=== PATIENT | female | born 1955 | race African-American/Black ===

== ENCOUNTER 2018-01-12 08:10 | Inpatient (IN) | payer MEDICARE, BC ==
[2018-01-12] MEDS ORDERED: Lidocaine 1% PF 5 ML VIAL ONE (08:21)
[2018-01-12] MEDS ORDERED: Fentanyl 100 MCG/2 ML VIAL ONE (08:31)
[2018-01-12] MEDS ORDERED: Fentanyl 20 mcg/ml (100 ml CADD) IV PRN (08:41)
[2018-01-12] MEDS ORDERED: methylPREDNISolone Sod Succ/PF 125 MG/2 ML VIAL ONE (08:43)
[2018-01-12] MEDS ORDERED: Sodium Bicarbonate 2.5 MEQ/5 ML VIAL ONE (08:43)
[2018-01-12] MEDS ORDERED: Piperacillin/Tazobactam 4.5 GM VIAL ONE (08:43)
[2018-01-12] MEDS ORDERED: Calcium Chloride 1 GM/10 ML Abboject SYRINGE ONE (08:43)
[2018-01-12] MEDS ORDERED: Sodium Bicarb 50 MEQ/50 ML Abboject 8.4% SYRINGE ONE (08:45)
[2018-01-12] MEDS ORDERED: Norepinephrine 8 MG/0.9% NS 250 ML IVPB SCH (09:00)
[2018-01-12 09:01] LABS: #Eosinphils 0.7 thou/uL (0.0-0.7); #Lymphocytes 2.7 thou/uL (1.20-3.40); #Monocytes 1.3 thou/uL (0.11-0.59); #Neutrophils 6.9 thou/uL (1.40-6.50); %Basophils 0.4 % (0.0-1.0); %Eosinophils 6.3 % (0.0-10.0); %Lymphocytes 22.8 % (21.0-51.0); %Monocytes 11.2 % (0.0-10.0); %Neutrophils 59.2 % (42.0-75.0); Hemoglobin 8.2 g/dL (12.0-16.0); Mean Corpuscular HGB CONC 30.1 g/dL (32.0-36.0); Mean Corpuscular Hemoglobin 29.5 pg (27.0-31.0); Mean Platelet Volume 9.8 fL (7.4-10.4); Platelet Count 154 thou/uL (130-400); Red Blood Cell (RBC) Count 2.79 mill/uL (4.20-5.40); White Blood Cell (WBC) Count 11.6 thou/uL (4.8-10.8)
[2018-01-12 09:11] LABS: pH, Arterial 7.39 (7.35-7.45)
[2018-01-12 09:12] LABS: Actual Bicarbonate (HCO3a) 36.4 mEq/L (22-28); Base Excess (BEa) 10.3 mEq/L (-2.0 to +3.0); CO2 Tension 61.9 mmHg (35.0-45.0); Hematocrit-ABG 22.9 % (36.0-47.0); Hemoglobin (Hb) 6.7 g/dL (12.0-16.0); O2 Tension (PaO2) 154.1 mmHg (> 80.0)
[2018-01-12 09:13] LABS: ALV-art Gradient 196.325 (0-20); Analyzer IN Cardio ER; Calcium, Ionized 1.5 mmol/L (1.12-1.30); Puncture Site RRA
[2018-01-12 09:27] LABS: Band 8 % (5-11); Eosinophils 3 % (0-10); Lymphocytes 30 % (21-51); MDiff Complete? YES; Monocytes 9 % (0-10); Myelocyte 1 % (0-0); Neutrophil 49 % (42-75); PLT Morphology Comment Appears Adequate; Polychromasia SLIGHT = 2-3 cells (100X) (0-2/hpf)
[2018-01-12 09:28] LABS: CKMB 2.1 ng/mL (0-6.6); Troponin I 0.028 ng/mL (< 0.028)
[2018-01-12 09:33] LABS: INR-International Normal Ratio 1.1
[2018-01-12 09:34] LABS: PTT 31.2 SEC (22.9-36.1)
[2018-01-12 09:35] LABS: D-Dimer Test 1.56 *mcg/mL (0.27-0.43)
[2018-01-12 09:48] LABS: ALT (SGPT) 10 U/L (8-55); AST (SGOT) 30 U/L (5-34); Albumin 3.4 g/dL (3.4-4.8); Alkaline Phosphatase 75 U/L (40-150); Anion Gap 13 mmol/L (10-20); BUN (Urea Nitrogen) 26 mg/dL (9.8-20.1); Bilirubin, Total 0.3 mg/dL (0.2-1.2); Calc. Creatinine Clearance 0 mL/min (70-130); Carbon Dioxide 29 mmol/L (23-31); Chloride 104 mmol/L (98-107); Estimated GFR-MDRD 55; Globulin 4.2 g/dL (2.4-3.5); Glucose 148 mg/dL (80-115); Lipase 37 U/L (8-78); Magnesium 2.1 mg/dL (1.6-2.6); Potassium 4.6 mmol/L (3.5-5.1); Protein, Total 7.6 g/dL (6.0-8.3); Sodium 141 mmol/L (136-145)
--- NOTE | 2018-01-12 09:52 | RAD ---
UPRIGHT PORTABLE CHEST ONE VIEW: History: 62-year-old female with history of respiratory distress. FINDINGS: Post op underlying sternotomy. Dual-lumen venous access catheter on the left side. Cardiomegaly with bilateral vascular congestion and bilateral pleural effusions and bibasilar pulmonary parenchymal lg nges. IMPRESSION: Left dual-lumen venous access catheter. Post underlying sternotomy. Cardiomegaly with bilateral vascu lar congestion, bilateral pleural effusions, and bibasilar pulmonary parenchymal changes with poor in spiratory effort. Consider short term follow up upright PA and lateral chest whenever the patient can undergo that study. POS: [facility]
--- NOTE | 2018-01-12 10:23 | CT ---
CT OF BRAIN PERFORMED WITHOUT CONTRAST ENHANCEMENT: History: Altered mental status. FINDINGS: The ventricular and cisternal system is within normal limits. There is no sign of intracerebral hemor rhage or extraaxial fluid collections. Mastoid air cells and visualized sinuses are clear. IMPRESSION: No acute intracranial abnormalities. POS: [facility]
--- NOTE | 2018-01-12 10:27 | RAD ---
FRONTAL RADIOGRAPH OF THE CHEST PORTABLE SUPINE: Date: 01-12-18 Time: 8:21 a.m. Comparison: 01-12-18 at 7:31 a.m. History: Intubated patient. FINDINGS: An endotracheal tube has been placed, overlying the tracheal air column, terminating at the level of the clavicular heads. Left sided diaphysis catheter present in stable position. Sternotomy wires note d inferiorly with mediastinal clips, stable. Hazy bibasilar pleural and parenchymal opacity, left gre ater than right, nonspecific and stable. Supine imaging limits assessment for pneumothorax and pleural fluid. IMPRESSION: Interval intubation - otherwise unchanged. POS: [facility]
--- NOTE | 2018-01-12 10:29 | CT ---
CT ARTERIOGRAM CHEST WITH IV CONTRAST AND 3D MIP IMAGING: History: Dyspnea. Bilateral lung transplants. FINDINGS: There is good contrast opacification of the pulmonary arteries. Bovine origin of the great vessels fr om the aortic arch. Post-operative changes consistent with bilateral lung transplants. Moderate degree of bibasilar atelectasis with small amount of bilateral pleural fluid. No evidence of pneumothorax. Endotracheal catheter and left internal jugular dialysis type catheter are noted. IMPRESSION: 1. No CT evidence of pulmonary embolus. 2. Post-operative changes. Moderate bilateral basilar atelectasis. Cause is not apparent. POS: [facility]
[2018-01-12 10:33] LABS: Bilirubin Negative (Negative); Blood, Urine Negative (Negative); Clarity CLEAR (Clear); Glucose, Urine (Dipstick) Negative (Negative); Leukocyte Negative (Negative); Nitrite Negative (Negative); Protein, Urine (Dipstick) Negative (Neg-Trace); Urobilinogen 0.2 mg/dL (0.2-1.0)
[2018-01-12] MEDS ORDERED: Furosemide 20 MG/2 ML VIAL ONE (10:54)
[2018-01-12] MEDS ORDERED: Furosemide 40 MG/4 ML VIAL ONE (10:54)
[2018-01-12] MEDS ORDERED: ISOVUE-370 76%-LOCM 1 ML ONE (11:54)
[2018-01-12 12:56] LABS: Actual Bicarbonate (HCO3a) 34.2 mEq/L (22-28); CO2 Tension 54.4 mmHg (35.0-45.0); O2 Tension (PaO2) 100.7 mmHg (> 80.0); pH, Arterial 7.42 (7.35-7.45)
[2018-01-12 12:57] LABS: Base Excess (BEa) 8.6 mEq/L (-2.0 to +3.0); Hemoglobin (Hb) 7.7 g/dL (12.0-16.0)
[2018-01-12 12:58] LABS: Calcium, Ionized 1.2 mmol/L (1.12-1.30); Puncture Site RBA
[2018-01-12 13:00] LABS: Troponin I 0.033 ng/mL (< 0.028)
[2018-01-12] MEDS: Sodium Chloride 0.45% 1,000 ML IV SCH (13:30)
[2018-01-12 13:57] VITALS: BMI 33.3
[2018-01-12 16:55] LABS: Troponin I 0.042 ng/mL (< 0.028)
[2018-01-12] MEDS: Mometasone/Formoterol 120 PUFF INHALER INH SCH (19:06)
[2018-01-12] MEDS ORDERED: Famotidine/PF 20 mg/2ml Vial SLOW IVP SCH (21:00)
[2018-01-12] MEDS ORDERED: Vancomycin HCl 1 GM in Premix Bag 1 BAG IVPB SCH (21:00)
[2018-01-12] MEDS ORDERED: Cefepime 2 GM in Sodium Chloride 0.9% 100 ML IVPB SCH (21:00)
[2018-01-13] MEDS: Sodium Chloride 0.45% 1,000 ML IV SCH (00:25)
[2018-01-13 04:43] VITALS: TEMP 98.7
[2018-01-13 07:13] VITALS: BP 121/92
[2018-01-13 07:39] LABS: Anion Gap 12 mmol/L (10-20); BUN (Urea Nitrogen) 34 mg/dL (9.8-20.1); Calc. Creatinine Clearance 56 mL/min (70-130); Carbon Dioxide 32 mmol/L (23-31); Chloride 102 mmol/L (98-107); Estimated GFR-MDRD 45; Glucose 97 mg/dL (80-115); Potassium 4.3 mmol/L (3.5-5.1); Sodium 142 mmol/L (136-145)
[2018-01-13 07:56] LABS: Anisocytosis SLIGHT = 6-15 cells (100X) (0-5/hpf); Band 5 % (5-11); Hemoglobin 6.5 g/dL (12.0-16.0); Lymphocytes 3 % (21-51); MDiff Complete? YES; Mean Corpuscular HGB CONC 32.7 g/dL (32.0-36.0); Mean Corpuscular Hemoglobin 29.9 pg (27.0-31.0); Mean Corpuscular Volume 91.5 fL (78.0-98.0); Mean Platelet Volume 10.1 fL (7.4-10.4); Monocytes 2 % (0-10); Neutrophil 90 % (42-75); PLT Morphology Comment Appears Decreased; Platelet Count 99 thou/uL (130-400); RBC Distribution Width 15.9 % (11.5-14.5); Red Blood Cell (RBC) Count 2.18 mill/uL (4.20-5.40)
[2018-01-13] MEDS: Mometasone/Formoterol 120 PUFF INHALER INH SCH (07:58)
[2018-01-13] MEDS ORDERED: Montelukast Sodium 10 mg Tablet PO SCH (09:00)
--- NOTE | 2018-01-13 10:06 | CON ---
DATE OF CONSULTATION: 01/12/2018 HISTORY OF PRESENT ILLNESS: Ms. Wills is a 62-year-old female. She recently completed extremely long hospitalization for transplant rejection. She is a double-lung transplant recipient. I am told she had pulmonary fibrosis. She presented with respiratory distress, was intubated. The patient did not want to go to [place]. In my interaction with the patient, she is not ready for palliative care nor is his family. I am meeting with the family. They do not want her to [place] because she does not want to go. They did not localize any problems with the care provided at a transplant center. She was admitted by the emergency physician to the Hospitalist without a discussion with us. She has seen my associate, Dr. Tafoya, in the past, but has not seen him since 2013. She is in her second year after her transplant. According to his note in 2013, she had end-stage bronchiectasis with no clear etiology. Her family says she has had chronic transplant rejection and her transplant doctors in [place] had told her that it is I can do for her. She is unwilling to proceed with comfort care and her family wants to honor her wishes. PAST MEDICAL HISTORY: Remarkable for sleep apnea, asthma, hypertension, bronchiectasis, knee surgery, , and hysterectomy in the past. SOCIAL HISTORY: She never was a smoker or drinker. ALLERGIES: She has no known drug allergies. FAMILY HISTORY: Negative for lung disease in early age. PHYSICAL EXAMINATION: GENERAL: She is afebrile, heart rates in the 90s, respiratory rate in the 20s, oximetry is 99, blood pressures 138/97. GENERAL: She appeared comfortable mechanical ventilation. She was able to interact. NECK: Supple, without lymphadenopathy. LUNGS: Distant and clear. HEART: Regular rhythm, rapid rate. ABDOMEN: Soft and nontender. EXTREMITIES: Without clubbing, cyanosis, or edema. she is in sinus rhythm. LABORATORY AND DIAGNOSTIC DATA: White count 11.6, hemoglobin 8.2, platelets 154 ,000. Sodium 141, potassium 4.6, chloride 104, bicarb 29, BUN 23, creatinine 1.19. CT pulmonary angiogram was done. She has diffused ground glass infiltrates bilaterally that are patchy and there was no evidence of thromboembolic disease. IMPRESSION: Respiratory failure associated with chronic transplant rejection, it is unclear whether or not she has an acute infectious process. I recommended transfer to her transplant center yesterday. In my experience, I have always wanted to manage her perioperative posttransplant issues. I think this is especially appropriate with a double-lung transplant. She is stable for transfer. I would recommend transfer via helicopter. Critical care time is 35 minutes MTDD
== END 2018-01-13 10:18 | disposition short-term general hospital (02) | DRG 208 ==
LOC: ERS 08:10 → CCU 11:55
PROVIDERS: ADMIT Family Medicine; ATTEND Family Medicine
PROC: 5A1935Z Respiratory Ventilation, Less than 24 Consecutive Hours (ICD-10-PCS; principal; 2018-01-12)
PROC: 0BH17EZ Insertion of Endotracheal Airway into Trachea, Via Natural or Artificial Opening (ICD-10-PCS; 2018-01-12)
DX: T86.810 Lung transplant rejection (principal); J96.92 Respiratory failure, unspecified with hypercapnia; G47.30 Sleep apnea, unspecified; J45.909 Unspecified asthma, uncomplicated; I10 Essential (primary) hypertension; Z87.09 Personal history of other diseases of the respiratory system
CPT/HCPCS: 31500; 36415; 36416; 36556; 51702; 70450; 71045; 71275; 80048; 80053; 80197; 81003; 82533; 82553; 82805; 83605; 83690; 83735; 83880; 84443; 84484; 85025; 85379; 85384; 85610; 85730; 86850; 86900; 86901; 87040; 87086; 87149; 93005; 94002; 94003; 94660; 96365; 96366; 96367; 96368; 96374; 96375; A4216; J0692; J1940; J1956; J2001; J2543; J2920; J2930; J3010; J3370; J7050

== ENCOUNTER 2018-02-10 13:42 | Inpatient (IN) | payer MEDICARE, BC ==
[2018-02-10 14:06] LABS: #Basophils 0.2 thou/uL (0.0-0.2); #Eosinphils 0.3 thou/uL (0.0-0.7); #Monocytes 0.8 thou/uL (0.11-0.59); %Basophils 1.5 % (0.0-1.0); %Eosinophils 2.7 % (0.0-10.0); %Lymphocytes 48.9 % (21.0-51.0); %Monocytes 7.6 % (0.0-10.0); %Neutrophils 39.3 % (42.0-75.0); Hemoglobin 9.2 g/dL (12.0-16.0); Mean Corpuscular HGB CONC 30.9 g/dL (32.0-36.0); Mean Corpuscular Hemoglobin 28.9 pg (27.0-31.0); Mean Corpuscular Volume 93.4 fL (78.0-98.0); Mean Platelet Volume 6.8 fL (7.4-10.4); Platelet Count 119 thou/uL (130-400); RBC Distribution Width 18.9 % (11.5-14.5); Red Blood Cell (RBC) Count 3.19 mill/uL (4.20-5.40); White Blood Cell (WBC) Count 10.3 thou/uL (4.8-10.8)
[2018-02-10 14:12] LABS: INR-International Normal Ratio 1.6; PTT 43.2 SEC (22.9-36.1); Prothrombin Time 19.1 SEC (12.0-14.7)
[2018-02-10 14:31] LABS: pH, Arterial 7.14 (7.35-7.45)
[2018-02-10 14:32] LABS: Actual Bicarbonate (HCO3a) 16.4 mEq/L (22-28); Base Excess (BEa) -12.1 mEq/L (-2.0 to +3.0); Carboxyhemoglobin (COHb) 0.1 gm% (0.0-3.0); Hemoglobin (Hb) 9.5 g/dL (12.0-16.0); O2 Tension (PaO2) 482.9 mmHg (> 80.0); Potassium - ABG Lab 4.5 mmol/L (3.70-5.30)
[2018-02-10 14:33] LABS: Analyzer IN Cardio ER; Calcium, Ionized 1.2 mmol/L (1.12-1.30); Puncture Site LF
[2018-02-10 14:33] LABS: CKMB 1.7 ng/mL (0-6.6); Troponin I 0.021 ng/mL (< 0.028)
--- NOTE | 2018-02-10 14:57 | RAD ---
PORTABLE AP CHEST: Date: 02/10/18 HISTORY: Follow-up evaluation. Tracheostomy device in place. [facility]. COMPARISON: 01/12/18. FINDINGS: The endotracheal tube has been removed, and there has been interval placement of the tracheostomy dev ice. A left internal jugular vein hemodialysis catheter remains in place and unchanged in position. P ostsurgical changes of the chest are noted with multiple surgical clips seen overlying the cardiac si lhouette, lower chest, as well as surgical clips overlying the right upper quadrant. Cerclage wires a lso overlie the lower midline of the chest. Pacing device overlies the right chest. There is evidence of bibasilar atelectasis. There is suggesting of blunting of the right lateral cost ophrenic angle on the prior exam, which is not appreciated on today's exam. Parenchymal changes of ea ch lung base have improved. Cardiac silhouette is magnified by projection, but is at the upper limits of normal to borderline enlarged. Pulmonary vasculature is within normal limits. There are calcific densities overlying the upper quadrants bilaterally, which may be related to residual contrast within the colon. IMPRESSION: 1. Tracheostomy device now noted in place. 2. Improvement in bibasilar pleural and parenchymal changes, with only mild linear and patchy densit ies now seen, probably related to atelectasis. POS: [facility]
[2018-02-10 14:58] LABS: Bilirubin Negative (Negative); Blood, Urine Large (Negative); Glucose, Urine (Dipstick) Negative (Negative); Leukocyte Negative (Negative); Nitrite Negative (Negative); Protein, Urine (Dipstick) 100 mg/dL (Neg-Trace); Specific Gravity, Urine 1.025 (1.005-1.030); Urobilinogen 0.2 mg/dL (0.2-1.0)
[2018-02-10 15:00] LABS: Clarity Hazy (Clear)
[2018-02-10 15:08] LABS: Bacteria/HPF None Seen HPF (None Seen); RBC/HPF GREATER THAN 50-TNTC HPF (0-3); Squamous Epithelial 0-3 HPF (0-3); Transitional Epithelial 0-3 HPF (0-3); WBC/HPF 0-3 HPF (0-3)
[2018-02-10 15:09] LABS: Hyaline Casts/LPF 0-3 HYALINE CAST LPF (0-3 Hyaline)
[2018-02-10 15:34] LABS: Albumin 3.3 g/dL (3.4-4.8)
[2018-02-10 15:35] LABS: Calcium 8.3 mg/dL (7.8-10.44); Chloride 113 mmol/L (98-107); Potassium 4.8 mmol/L (3.5-5.1); Sodium 144 mmol/L (136-145)
[2018-02-10 15:36] LABS: Glucose 148 mg/dL (80-115)
[2018-02-10 15:37] LABS: Globulin 3.5 g/dL (2.4-3.5); Protein, Total 6.8 g/dL (6.0-8.3)
[2018-02-10 15:38] LABS: Anion Gap 16 mmol/L (10-20); Bilirubin, Total 0.4 mg/dL (0.2-1.2); Carbon Dioxide 20 mmol/L (23-31)
[2018-02-10 15:39] LABS: Alkaline Phosphatase 68 U/L (40-150)
[2018-02-10 15:40] LABS: BUN (Urea Nitrogen) 35 mg/dL (9.8-20.1); Calc. Creatinine Clearance 0 mL/min (70-130); Estimated GFR-MDRD 43
[2018-02-10 15:41] LABS: AST (SGOT) 206 U/L (5-34)
[2018-02-10 15:42] LABS: ALT (SGPT) 163 U/L (8-55); CK (CPK) 45 U/L (29-168)
--- NOTE | 2018-02-10 15:51 | CT ---
CT BRAIN WITHOUT CONTRAST: Date: 02/10/18 HISTORY: Altered mental status. FINDINGS: Comparison made with exam of 01/12/18. No evidence of acute infarct, hemorrhage, midline shift, or abnormal extra-axial fluid collections ar e seen. The ventricular size is normal and the basilar cisterns are patent. The bony calvarium is int act. There is mucosal disease in the ethmoid air cells. IMPRESSION: No CT evidence of acute intracranial process. POS: [facility]
[2018-02-10] MEDS ORDERED: Sodium Chloride 0.9% 100 ML ONE (16:11)
[2018-02-10] MEDS ORDERED: Cefepime 2 GM VIAL ONE (16:11)
[2018-02-10 17:27] LABS: Troponin I 0.129 ng/mL (< 0.028)
[2018-02-10] MEDS ORDERED: Acetaminophen 325 MG TAB PER TUBE PRN (17:53)
[2018-02-10 18:38] VITALS: BMI 25.7
[2018-02-10] MEDS ORDERED: cloNIDine 0.1 MG TAB PO PRN (18:41)
[2018-02-10] MEDS ORDERED: Ondansetron HCl/PF 4 MG/2 ML Vial IVP PRN (18:41)
[2018-02-10] MEDS ORDERED: hydrALAZINE 20 MG/ML VIAL SLOW IVP PRN (18:41)
[2018-02-10] MEDS: Piperacillin/Tazobactam 3.375 GM in Sodium Chloride 0.9% 100 ML IVPB SCH ×2 (19:00→23:03)
[2018-02-10] MEDS: Sodium Chloride 0.9% 1,000 ML IV SCH (19:25)
[2018-02-10] MEDS: Mycophenolate 250 MG CAP PO SCH (19:58)
[2018-02-10] MEDS: SMX/TMP 800-160mg/20 ML UDCUP PO SCH (19:59)
[2018-02-10] MEDS: Vancomycin HCl 1 GM in Premix Bag 1 BAG IVPB SCH (19:59)
[2018-02-10] MEDS: Tacrolimus 1 MG CAP PER TUBE SCH (19:59)
[2018-02-10] MEDS ORDERED: Famotidine/PF 20 mg/2ml Vial SLOW IVP SCH (21:00)
[2018-02-10] MEDS ORDERED: ACETYLCYSTEINE PER TUBE SCH (21:00)
--- NOTE | 2018-02-10 22:59 | CON ---
DATE OF CONSULTATION: 02/10/2018 CONSULTING PHYSICIAN: Dr. Robledo. REASON FOR CONSULTATION: Patient is status post arrest. HISTORY OF PRESENT ILLNESS: The patient is a 62-year-old -[place] female who became unresponsive while at home today with her attending nurse. CPR was begun, which I believe consisted of chest compressions, but no ventilation as the patient has an indwelling trach. I am not sure how long it took EMS to arrive, but it sounds like the patient was down for 10 minutes or more. EMS put an LMA because they were unsure of the trach. The patient coded 1 more time en route. She regained pulse with epinephrine and atropine in the ER, it was noted that her trach was in good position and the LMA was removed, and she has since been ventilated to the trach. This patient has a history of chronic transplant rejection of bilateral lung transplant that was performed in 2015. She was recently seen at [facility] in [place] and stayed there for 2 weeks. She had to have a tracheostomy placed. I believe she was told there was not much else that could be done, although the patient has not entered a palliative type mode in her care. The patient has seen Dr. Tafoya in the past. Her lung transplant was performed secondary to end-stage bronchiectasis without clear etiology. PAST MEDICAL HISTORY: 1. Chronic bronchiectasis. 2. Lung transplantation bilateral. 3. MORGAN. 4. Asthma. 5. Hypertension. 6. Knee surgery. 7. . 8. Hysterectomy. 9. Tracheostomy placement. 10. J-G tube placement. SOCIAL HISTORY: No history of drinking or smoking cigarettes. ALLERGIES: None. MEDICATIONS PRIOR TO ADMISSION: Valganciclovir 450 mg every Friday, Friday, and Friday; famotidine 20 mg once daily; Florinef 0.1 mg daily; DuoNeb 1 neb every 4 hours as needed; Lyrica 75 mg twice daily; metoprolol 50 mg twice daily ; mycophenolate mofetil 500 mg twice daily; prednisone 10 mg daily; Seroquel 50 mg daily; Bactrim 200 mg-40 mg in 5 mL, she takes 10 mL twice daily; tacrolimus 2 mg twice daily; and tramadol 50 mg as needed for pain. FAMILY MEDICAL HISTORY: Unremarkable. REVIEW OF SYSTEMS: Cannot be obtained as the patient is on mechanical ventilation. PHYSICAL EXAMINATION: VITAL SIGNS: Temperature 97.3, pulse 66, blood pressure 147/88, respiratory rate 22, O2 sat 100% on mechanical ventilation. NEUROLOGIC: The patient will occasionally flutter her eyelids open to deep stimulation around the face and torso region. She does not blink to threat. There is no predictability to the eye reflex. Her pupils are both 1 mm and unreactive to light. She does not withdraw to pain in any of her 4 extremities. She will not follow commands. HEENT: Remarkable for mild alopecia. Oropharynx showed no lesions. NECK: She has an indwelling tracheostomy tube, which appears to be well kept. LUNGS: Clear breath sounds bilaterally. CARDIOVASCULAR: S1 and S2 regular with a harsh 3/6 systolic murmur. ABDOMEN: Soft, nontender. There is a J-G tube in place, which appears to be old. EXTREMITIES: No clubbing, cyanosis, or edema. LABORATORY AND DIAGNOSTIC DATA: Sodium 144, potassium 4.8, chloride 113, CO2 of 20, BUN 35, creatinine 1.5, glucose 148, AST 206, ALT 163, albumin 3.3. PH 7.14, pCO2 of 49, pO2 of 42 that is on assist control rate 20, tidal volume 400 , PEEP 10, FiO2 100%. White blood cell count is 10.3, hematocrit 29.8, platelet count 119,000. Urinalysis showed numerous red blood cells, some proteinuria. Head CT did not show any acute abnormalities. Chest x-ray shows multiple surgical clips bilaterally. She has an indwelling left subclavian Pena catheter. There may be some infiltrative changes in the right mid lung. ASSESSMENT: 1. Status post prolonged cardiopulmonary arrest. 2. Likely has some degree of anoxic brain injury, which appears to be severe on initial evaluation as the patient has not received any kind of paralytics or sedative medication. 3. History of a lung transplant secondary to bronchiectasis, now with chronic rejection, which apparently cannot be fixed according to the family. 4. Elevated liver function tests likely secondary to shock liver. 5. Mild renal insufficiency. RECOMMENDATIONS: 1. The ER staff called the patient's transplant team in [place] who basically told them that there was no need to transport up there unless her neurologic condition improved. 2. Patient will be treated supportively with antibiotics, steroids, antirejection medications, IV fluids, and given some time to see if she improves. My opinion is that she probably will not improve. 3. There is one daughter who is the designated power of real estate associate attorney. There are two other children involved, one is here and the son is in [place]. They are not sure about DNR status. They did tell me that mother would not want resuscitative efforts if there was no hope of neurologic recovery. KRISTIE
[2018-02-10] MEDS: Albuterol Sulfate 1.25 MG/3 ML NEB NEB SCH (23:54)
--- NOTE | 2018-02-11 00:14 | HP ---
DATE OF ADMISSION: 02/10/2018 PRIMARY CARE PROVIDER: Jessica Riley M.D. CHIEF COMPLAINT: Cardiac arrest. HISTORY OF PRESENT ILLNESS: This is a 62-year-old -[place] female who presents to [facility] Emergency Department after apparently sustaining cardiac arrest and loss of consciousness f ollowing a deep suctioning of her tracheostomy by home health services. The patient with significant history of interstitial lung disease, status post bilateral lung transplantation approximately 2 yea rs prior to this evaluation on immunosuppressant therapy. The patient was apparently being evaluated by her home health services undergoing general tracheostomy care when she became bradycardiac passin g out at home. EMS personnel were called and CPR was initiated by the family awaiting EMS evaluation . The patient apparently underwent CPR and ACLS protocol receiving epinephrine, atropine as well as chest compressions. The patient had return of spontaneous circulation after ACLS protocol. The patie nt was noted obtunded and placed on mechanical ventilation with intubation. The patient underwent CT imaging of the brain showing no acute intracranial process. The patient was noted with fixed pupils without protective reflexes. The patient was apparently being evaluated by the ER personnel for tra nsfer to [place] where she receives most of her care and underwent recent hospitalization due to rejec tion of her lung transplants. Due to patient's tenuous neurologic status, the patient was not deemed appropriate for transfer. Discussions were had with the family at the bedside in the emergency room at which point the patient will be admitted to [facility] due to return of spontaneous circ ulation as well as stable vital signs; however neurologic status remains unclear; however, initial co ncerns or grave. In the emergency room, the patient also received IV vancomycin and cefepime and was evaluated by the Pulmonary and Critical Care Service. PAST MEDICAL HISTORY: 1. Pulmonary fibrosis. 2. Interstitial lung disease. 3. Chronic immunosuppressive therapy. 4. Chronic respiratory failure with tracheostomy. 5. History of pulmonary hypertension. PAST SURGICAL HISTORY: 1. Status post hysterectomy. 2. Status post total abdominal hysterectomy. 3. Status post section. 4. Status post knee surgery. 5. Status post bilateral lung transplantation. CURRENT MEDICATIONS: 1. Acetylcysteine 600 mg p.o. t.i.d. 2. Albuterol sulfate 1.25 mg nebulized q.4 hours. 3. Ergocalciferol 1000 units p.o. daily. 4. Estradiol 0.5 mg p.o. daily. 5. Lasix 20 mg p.o. q.a.m. 6. Medrol Dosepak. 7. Vitamin C 1500 mg p.o. daily. 8. Cefdinir 300 mg p.o. b.i.d. 9. [place] 3 fatty acids 1 capsule p.o. daily. 10. Protonix 40 mg p.o. daily. 11. Potassium chloride 20 mEq p.o. daily. 12. Valsartan/hydrochlorothiazide 80/12.5 mg 1 tab p.o. daily. 13. Symbicort 160/4.5 two puffs inhaled b.i.d. ALLERGIES: No known drug allergies. FAMILY HISTORY: Positive for coronary artery disease. SOCIAL HISTORY: The patient resides in [place], [place]. Accompanied by multiple family members in the emergency room. No current alcohol, tobacco or illicit drug use. REVIEW OF SYSTEMS: Unobtainable as patient on current mechanical ventilation and encephalopathic. PHYSICAL EXAMINATION: VITAL SIGNS: Currently, blood pressure 176/87, pulse 66, respiratory rate 16 on mechanical ventilati on, temperature 98.7 degrees Fahrenheit, O2 saturation 100% on 100% FiO2 with SIMV. GENERAL APPEARANCE: This is a 62-year-old -[place] female lying on the hospital bed, unrespo nsive on mechanical ventilation through tracheostomy. HEENT: Pupils are nonreactive at 2-3 mm. No corneal reflex noted. Spontaneously opens eyes. Does not track with the eyes. Nares patent. OP is clear, laceration to the lower lip noted. NECK: Tracheostomy in place. No palpable mass, adenopathy or thyromegaly. Cervical spine without t enderness to palpation. CHEST: Lungs are clear to auscultation bilaterally. CARDIOVASCULAR: S1, S2, without noted murmur, rub or gallop. ABDOMEN: Rounded, soft, nontender, nondistended. Bowel sounds are positive in all four quadrants. PEG tube is intact. EXTREMITIES: Warm and dry with fair turgor. No clubbing, cyanosis or asymmetric edema appreciated. Pulses palpable distally at the dorsalis pedis, posterior tibial, and popliteal arteries bilaterally . Capillary refill less than 2 seconds. GENITOURINARY: Buchanan catheter in place with clear urine. NEUROLOGIC: Pupils are fixed at approximately 3-4 mm. No tracking with the eyes. No corneal or gag reflex. PERTINENT LABORATORY AND X-RAY FINDINGS: Sodium 144, potassium 4.8, chloride 113, CO2 of 20, BUN 35, creatinine 1.47, estimated GFR of 43, glucose 148, calcium 8.3, AST 206, ALT 163, alkaline phosphata se 68, total bilirubin 0.4, troponin I ranged between 0.021-0.129. CBC showed a white blood cell cou nt 10.3, hemoglobin 9, hematocrit 30, platelet count 119 with 39% neutrophils. PT 19.1, INR 1.6, PTT 43.2. ABG dated 02/10/2018 showed a pH of 7.14, pCO2 of 49, pO2 of 483, bicarbonate 16.4, O2 satura tion 100% on 100% FiO2 by SIMV. Urinalysis positive for protein and greater than 50 to too numerous to count RBCs. Stool Hemoccult dated 02/10/2018 negative x1. Portable chest x-ray dated 02/10/[address]. Improvement in bibasilar pleural and parenchymal changes. CT of the b rain without contrast dated 02/10/2018 showed no acute intracranial process. EKG dated 02/10/2018 by my interpretation shows sinus tachycardia with heart rates in the 140s. Baseline artifact noted. P remature ventricular contractions noted. Attenuated R waves in the precordial leads. Left axis kacey ation. ASSESSMENT AND PLAN: 1. Cardiac arrest with return of spontaneous circulation. The patient will be admitted to the criti quinton care unit. Exact time that patient was down is unclear. Suspect patient sustained anoxic brain injury. We will continue general pulmonary supportive measures. Suspect patient's cardiac arrest se condarily to acute hypoxic insult. Repeat chest x-ray in the a.m. Consider 2D transthoracic echocar diogram. 2. Acute hypoxic hypercapnic respiratory failure. We will continue mechanical ventilation with SIMV . Current FiO2 of 100%. We will continue to monitor serial ABGs. Pulmonology consult for ongoing v entilatory management. Suspect patient had an occluded tracheostomy tube. 3. Anoxic encephalopathy. Suspected given patient's clinical exam and lack of protective reflexes. We will consult Neurology Service for further evaluation. Consider cerebral perfusion study in the next 24-48 hours. 4. Status post bilateral lung transplantation on chronic immunosuppressive therapy. We will continu e general pulmonary supportive measures. SIMV mechanical ventilation. Resume bronchodilator therapy and Symbicort. Continue Solu-Medrol 40 mg IV q.6 hours. Continue CellCept 500 mg b.i.d. Continue empiric antibiotic coverage with Zosyn and vancomycin intravenously. 5. Acute kidney injury. Suspected given patient's current creatinine. Avoid nephrotoxic agents and contrast media. Continue intravenous normal saline 100 mL per hour. Repeat creatinine in the a.m. 6. Liver shock. Suspect secondarily to CPR and cardiac arrest. We will continue trending of LFTs. 7. Prophylaxis. Sequential compression devices while in bed. Pepcid 20 mg IV b.i.d. 8. Code status is FULL. Surrogate medical decision maker is the patient's daughter. Total critical care time 38 minutes.
[2018-02-11] MEDS: Albuterol Sulfate 1.25 MG/3 ML NEB NEB SCH ×4 (02:06→22:19)
[2018-02-11] MEDS: Sodium Chloride 0.9% 1,000 ML IV SCH ×2 (03:17→13:42)
[2018-02-11] MEDS: Piperacillin/Tazobactam 3.375 GM in Sodium Chloride 0.9% 100 ML IVPB SCH ×4 (05:23→23:44)
[2018-02-11 06:19] LABS: Anion Gap 14 mmol/L (10-20); BUN (Urea Nitrogen) 45 mg/dL (9.8-20.1); Calc. Creatinine Clearance 29 mL/min (70-130); Calcium 8.2 mg/dL (7.8-10.44); Carbon Dioxide 21 mmol/L (23-31); Chloride 113 mmol/L (98-107); Estimated GFR-MDRD 33; Glucose 121 mg/dL (80-115); Potassium 4.4 mmol/L (3.5-5.1); Sodium 144 mmol/L (136-145)
[2018-02-11] MEDS ORDERED: Non-Formulary Item 1 EACH (Budesonide-Formoterol [Symbicort 160-4.5] 2 PUFF) INH SCH (06:30)
[2018-02-11 06:34] LABS: #Basophils 0.1 thou/uL (0.0-0.2); #Lymphocytes 0.2 thou/uL (1.20-3.40); #Monocytes 0.2 thou/uL (0.11-0.59); %Basophils 0.6 % (0.0-1.0); %Eosinophils 0.1 % (0.0-10.0); %Lymphocytes 1.7 % (21.0-51.0); %Monocytes 1.4 % (0.0-10.0); %Neutrophils 96.3 % (42.0-75.0); Hemoglobin 8.7 g/dL (12.0-16.0); Mean Corpuscular HGB CONC 31.5 g/dL (32.0-36.0); Mean Corpuscular Hemoglobin 28.3 pg (27.0-31.0); Mean Corpuscular Volume 89.8 fL (78.0-98.0); Mean Platelet Volume 9.6 fL (7.4-10.4); Platelet Count 84 thou/uL (130-400); RBC Distribution Width 17.3 % (11.5-14.5); Red Blood Cell (RBC) Count 3.07 mill/uL (4.20-5.40); White Blood Cell (WBC) Count 12.5 thou/uL (4.8-10.8)
[2018-02-11] MEDS: Mometasone/Formoterol 120 PUFF INHALER INH SCH ×2 (07:32→18:36)
[2018-02-11 07:41] LABS: pH, Arterial 7.37 (7.35-7.45)
[2018-02-11 07:42] LABS: ALV-art Gradient 134.075 (0-20); Actual Bicarbonate (HCO3a) 20.1 mEq/L (22-28); Base Excess (BEa) -4.6 mEq/L (-2.0 to +3.0); CO2 Tension 35.7 mmHg (35.0-45.0); Calcium, Ionized 1.1 mmol/L (1.12-1.30); Carboxyhemoglobin (COHb) 0.9 gm% (0.0-3.0); Hemoglobin (Hb) 9.3 g/dL (12.0-16.0); O2 Tension (PaO2) 106.5 mmHg (> 80.0); Potassium - ABG Lab 4.4 mmol/L (3.70-5.30); Puncture Site RRA
--- NOTE | 2018-02-11 08:22 | RAD ---
PORTABLE CHEST: HISTORY: Respiratory distress. COMPARISON: Prior day's exam. FINDINGS: Tracheostomy tube remains in place. Left-sided HemoSplit catheter is unchanged in position. Heart s ize is enlarged. There has been development of some minimal blunting to the left costophrenic angle and more pronounced blunting obscuration to the right costophrenic angle. IMPRESSION: 1. Cardiomegaly. 2. Developing pleural effusions, right larger than left, with some associated atelectatic change. POS: [facility]
[2018-02-11] MEDS: Vancomycin HCl 1 GM in Premix Bag 1 BAG IVPB SCH ×2 (08:34→20:53)
[2018-02-11] MEDS: Mycophenolate 250 MG CAP PO SCH ×2 (08:34→20:53)
[2018-02-11] MEDS: Montelukast Sodium 10 mg Tablet PER TUBE SCH (08:35)
[2018-02-11] MEDS: SMX/TMP 800-160mg/20 ML UDCUP PO SCH ×2 (08:36→20:53)
[2018-02-11] MEDS: Fludrocortisone Acetate 0.1 MG TAB PER TUBE SCH (08:36)
[2018-02-11] MEDS: Enoxaparin Sodium 30 MG/0.3 ML SYRINGE SC SCH (08:36)
[2018-02-11] MEDS: Tacrolimus 1 MG CAP PER TUBE SCH ×2 (08:42→20:53)
[2018-02-11] MEDS ORDERED: Cholecalciferol (Vitamin D3) 400 UNITS TAB PER TUBE SCH (09:00)
[2018-02-11] MEDS ORDERED: predniSONE 20 MG TAB PO SCH (09:00)
--- NOTE | 2018-02-11 13:39 | PRG ---
DATE OF SERVICE: 02/11/2018 SUBJECTIVE: Ms. Natali Wills is status post cardiac arrest at home as per the daughter. She became unresponsive. The nurse was there at the bedside along with the nephew. CPAP was initiated. She is not breathing on own. She has permanant trach. Unclear how long the patient was down. This morning, she is on the vent, pretty much unresponsive. She has got some nonspecific twitches. OBJECTIVE: VITAL SIGNS: Blood pressure 137/90, respiration 24, pulse 88, sats are 100%. CHEST: Reveals bilateral rhonchi. CARDIAC: Normal S1, S2, no gallops. ABDOMEN: Soft. NEUROLOGIC: Neurologically encephalopathic. LABORATORY DATA: White count 12,000, hemoglobin and hematocrit is 8 and 27, platelet count is low 84,000. PO2 106, pCO236_ rate of 24, 400 tidal volume, creatinine 1.86, BUN 45. IMAGING DATA: Chest x-ray this morning shows a small right-sided pleural effusion. Trach in place and a large dialysis catheter in the left side of the neck. There is cardiomegaly. Brain CT yesterday evening shows no acute process. IMPRESSION: 1. Status post cardiopulmonary arrest, prolonged CPR, probably anoxic injury. 2. Lung transplant, etiology unclear, previously seen for chronic asthma. 3. Renal insufficiency. 4. Pleural effusion. 5. Abnormal liver function tests. PLAN: Discussed with family as they arrive. She is presently on anti-rejection medications including Prograf, Bactrim and CellCept. She at least is started on broad-spectrum antibiotics as for renal failure. Supportive care, steroids. At this stage, prognosis is guarded. We will discuss with family as they arrive. One-half hour critical care time. [facility]
--- NOTE | 2018-02-11 15:15 | EKG ---
Test Reason : Blood Pressure : / mmHG Vent. Rate : 147 BPM Atrial Rate : 092 BPM P-R Int : 000 ms QRS Dur : 106 ms QT Int : 314 ms P-R-T Axes : 000 -63 117 degrees QTc Int : 491 ms Supraventricular tachycardia with frequent , and consecutive Premature ventricular complexes Left anterior fascicular block Left ventricular hypertrophy with repolarization abnormality Abnormal ECG Confirmed by RUFINA LINDER DO ([id number]), film and video editor FIONA TEMPLE ([id number]) on 02/11/2018 3:14:38 PM Referred By: Confirmed By:RUFINA LNIDER DO
--- NOTE | 2018-02-11 18:13 | PDOC.PN ---
- Subjective Encounter Start Date: 02/11/18 Encounter Start Time: 12:30 Subjective: pt non verbal - Objective Resuscitation Status: Resuscitation Status FULL:Full Resuscitation Vital Signs & Weight: Vital Signs (12 hours) Temp Pulse Resp BP Pulse Ox 02/11/18 16:00 100.7 F H 20 02/11/18 15:01 98 156/84 H 02/11/18 15:00 97 20 99 02/11/18 14:00 20 02/11/18 12:00 99.9 F H 20 02/11/18 10:42 100 155/94 H 02/11/18 10:39 103 H 20 99 02/11/18 10:00 24 H 02/11/18 08:00 24 H 02/11/18 07:27 88 147/81 H 02/11/18 07:23 97 24 H 99 02/11/18 07:22 100.3 F H 96 24 H 100 02/11/18 07:00 100.3 F H Weight Admit Weight 132 lb 0.91 oz Weight 132 lb 0.91 oz Most Recent Monitor Data Heart Rate from ECG 107 NIBP 165/99 NIBP BP-Mean 116 Respiration from ECG 6 SpO2 100 I&O: 02/10/18 02/11/18 02/12/18 06:59 06:59 06:59 Intake Total 1132 1515 Output Total 790 205 Balance 342 1310 Result Diagrams: 02/11/18 05:41 02/11/18 05:41 Phys Exam - Physical Examination Neck: no nodes, no JVD, supple, full ROM pt has trach, mild rhonchi all over Cardiovascular: RRR, no significant murmur, no rub, gallop, irregular Gastrointestinal: soft, no distention, positive bowel sounds Musculoskeletal: no edema, pulses present, edema present Dx/Plan (1) Cardiac arrest Code(s): I46.9 - CARDIAC ARREST, CAUSE UNSPECIFIED Status: Acute (2) Acute respiratory failure Code(s): J96.00 - ACUTE RESPIRATORY FAILURE, UNSP W HYPOXIA OR HYPERCAPNIA Status: Acute (3) Pulmonary fibrosis Code(s): J84.10 - PULMONARY FIBROSIS, UNSPECIFIED Status: Acute - Plan pt recently was trached. idiopathic pulmonary fibrosis s/p transplant -: pt is unresponsive and most likely has anoxia brain injury. -: palliative care has been recommended by case managment -: if pt's family withdraws care hospice would be more appropriate. -: per pt's family she did not want to be kept alive on machines. * . Review of Systems - Review of Systems Other: unable to obtain - Medications/Allergies Allergies/Adverse Reactions: Allergies Allergy/AdvReac Type Severity Reaction Status Date / Time No Known Allergies Allergy Verified 02/10/18 18:34 Medications: Current Medications Acetaminophen (Tylenol) 650 mg PER TUBE Q6H PRN PRN Reason: Fever > 101 Albuterol Sulfate (Albuterol Sulfate) 1.25 mg NEB [id number] [facility] Last Admin: 02/11/18 14:59 Dose: Not Given Albuterol/Ipratropium (Duoneb) 3 ml NEB [id number] [facility] Last Admin: 02/11/18 15:00 Dose: 3 ml Cholecalciferol (Vitamin D) 1,000 units PER TUBE DAILY [facility] Last Admin: 02/11/18 08:36 Dose: 1,000 units Clonidine (Catapres) 0.1 mg PO Q4H PRN PRN Reason: Systolic BP > 180 Enoxaparin Sodium (Lovenox) 30 mg SC 0900 [facility] Last Admin: 02/11/18 08:36 Dose: 30 mg Famotidine (Pepcid) 20 mg SLOW IVP 2100 [facility] Fludrocortisone Acetate (Florinef) 0.1 mg PER TUBE DAILY [facility] Last Admin: 02/11/18 08:36 Dose: 0.1 mg Hydralazine HCl (Apresoline) 10 mg SLOW IVP Q4H PRN PRN Reason: Systolic BP > 180 Sodium Chloride (Normal Saline 0.9%) 1,000 mls @ 100 mls/hr IV .Q10H [facility] Last Admin: 02/11/18 13:42 Dose: 1,000 mls Piperacillin Sod/Tazobactam (Sod 3.375 gm/ Sodium Chloride) 100 mls @ 200 mls/ hr IVPB Q6HR [facility] Last Admin: 02/11/18 17:32 Dose: 100 mls Vancomycin HCl 1 gm/ Device 200 mls @ 200 mls/hr IVPB Q12HR [facility] Last Admin: 02/11/18 08:34 Dose: 200 mls Lorazepam (Ativan) 2 mg SLOW IVP Q1HR PRN PRN Reason: Seizures Methylprednisolone Sodium Succinate (Solu-Medrol) 40 mg IVP Q6HR [facility] Last Admin: 02/11/18 17:33 Dose: 40 mg Mometasone Furoate/Formoterol Fumar (Dulera 200 Mcg/5 Mcg Inhaler) 2 puff INH BID-RT [facility] Last Admin: 02/11/18 07:32 Dose: 2 puff Montelukast Sodium (Singulair) 10 mg PER TUBE DAILY [facility] Last Admin: 02/11/18 08:35 Dose: 10 mg Mycophenolate Mofetil (Cellcept) 500 mg PO BID [facility] Last Admin: 02/11/18 08:34 Dose: 500 mg Non-Formulary Medication (Acetylcysteine [Nac]) 1 tab PER TUBE TID [facility] Ondansetron HCl (Zofran) 4 mg IVP Q6H PRN PRN Reason: Nausea/Vomiting Sodium Chloride (Flush - Normal Saline) 10 ml IVF Q12HR [facility] Last Admin: 02/11/18 08:38 Dose: 10 ml Sodium Chloride (Flush - Normal Saline) 10 ml IVF PRN PRN PRN Reason: Saline Flush Tacrolimus (Prograf) 2 mg PER TUBE BID [facility] Last Admin: 02/11/18 08:42 Dose: 2 mg Trimethoprim/Sulfamethoxazole (Bactrim) 10 ml PO Q12HR [facility] Last Admin: 02/11/18 08:36 Dose: 10 ml Valganciclovir (Valcyte) 450 mg PO MWF [facility] Last Admin: 02/11/18 08:36 Dose: 450 mg
[2018-02-11] MEDS: Lorazepam 2 MG/ML VIAL SLOW IVP PRN (18:15)
[2018-02-11] MEDS ORDERED: Metoprolol Tartrate 5 MG/5 ML VIAL IVP SCH (20:00)
[2018-02-11] MEDS: Famotidine/PF 20 mg/2ml Vial SLOW IVP SCH (20:53)
--- NOTE | 2018-02-11 23:17 | CON ---
DATE OF CONSULTATION: 02/11/2018 REFERRING PROVIDER: Dr. George Tafoya. REASON FOR CONSULTATION: Anoxic brain injury. HISTORY OF PRESENT ILLNESS: Ms. Wills is a 62-year-old -Maltese female who has been consulted for evaluation of possible anoxic brain injury. History is obtained from patient's family members who were present at bedside as well as patient's dictated H&P note and patient's nurse who is taking care of the patient today. Patient's sister and daughter were present in the room during my initial encounter. Daughter reports that the patient has a history of interstitial lung disease, she has chronic lung issues and has a tracheostomy. Home health nurse was present yesterday, and was providing care and cleaning out and performing care on her tracheostomy. During that time, she became bradycardic and passed out. EMS was called in, at that time, the patient was noted to be in cardiac arrest. She was resuscitated for more than 15 minutes. She was given total of 5 rounds of resuscitative medications after which they were able to regain the pulse. She was intubated on field and transferred to [facility]. Since being admitted to the hospital , the patient has not been on any sedation. She has not been responsive to any verbal or noxious stimuli. Per nurse, there is a focal twitching of the left side of the face, they have not noticed any cough or gag reflex. For this reason, I am being asked to further evaluate this patient. PAST MEDICAL HISTORY: Reviewed there as dictated H&P note done by Dr. Víctor Robledo. PAST SURGICAL HISTORY: Reviewed there as dictated H&P note done by Dr. Víctor Robledo. FAMILY HISTORY: Reviewed there as dictated H&P note done by Dr. Víctor Robledo. SOCIAL HISTORY: Reviewed there as dictated H&P note done by Dr. Víctor Robledo. CURRENT MEDICATIONS: Reviewed there as dictated H&P note done by Dr. Víctor Robledo. ALLERGIES: Reviewed there as dictated H&P note done by Dr. Víctor Robledo. REVIEW OF SYSTEMS: Unable to perform. PHYSICAL EXAMINATION: VITAL SIGNS: Blood pressure of 155/94, heart rate of 100, temperature of 99.9 with a T-max of 100.3, respirations of 24 on mechanical ventilation. GENERAL: Intubated, nonsedated -Maltese female. RESPIRATORY: Clear to auscultation bilaterally. CARDIOVASCULAR: Regular rate and rhythm. NEUROLOGIC: Mental status: The patient is comatose. She is nonsedated. She does not respond to verbal or noxious stimuli. Cranial nerves: Pupils are 2 mm and reactive bilaterally. She does have positive corneal reflexes bilaterally. She does breathe over the ventilator machine and per nurse, the patient does not have cough and gag reflex. Motor exam showed flaccid bilateral upper and lower extremity. She has no response to sternal rub or nailbed pressure in both upper and lower extremities. LABORATORY DATA: Labs are reviewed, which included CBC, coag panel, CMP, urinalysis, which is significant for hemoglobin 8.7, hematocrit of 27.5, platelet count of 84, BUN of 45, creatinine of 1.86. Troponin of 0.129. Otherwise unremarkable. IMAGING STUDIES: CT head without contrast was reviewed, which showed no acute intracranial abnormality. IMPRESSION: 1. Cardiopulmonary arrest. 2. Decreased level of responsiveness, likely suggestive of anoxic brain injury. ASSESSMENT AND PLAN: Ms. Wills is a 62-year-old -Maltese female who presented with the cardiopulmonary arrest. She is noted to have decreased level of consciousness, which may be indicative of anoxic brain injury. I would recommend obtaining EEG and MRI brain without contrast when the patient is medically stable. I will follow the results of all studies and provide further recommendations at that time. I did discuss with the patient's family and explained the current prognosis is guarded to poor. I will discuss the results of MRI and EEG once completed. Continue current medical management. Thank you for consultation. KRISTIE
[2018-02-12] MEDS: Sodium Chloride 0.9% 1,000 ML IV SCH ×3 (00:56→17:34)
[2018-02-12] MEDS: Metoprolol Tartrate 5 MG/5 ML VIAL IVP SCH ×3 (01:48→16:01)
[2018-02-12] MEDS: Albuterol Sulfate 1.25 MG/3 ML NEB NEB SCH ×6 (02:55→22:20)
[2018-02-12] MEDS: Lorazepam 2 MG/ML VIAL SLOW IVP PRN (03:51)
[2018-02-12] MEDS ORDERED: Metoprolol Tartrate 5 MG/5 ML VIAL IVP SCH (04:45)
[2018-02-12] MEDS: Piperacillin/Tazobactam 3.375 GM in Sodium Chloride 0.9% 100 ML IVPB SCH ×3 (05:09→17:23)
[2018-02-12 05:50] LABS: Anion Gap 15 mmol/L (10-20); BUN (Urea Nitrogen) 51 mg/dL (9.8-20.1); Calc. Creatinine Clearance 23 mL/min (70-130); Calcium 8.1 mg/dL (7.8-10.44); Carbon Dioxide 18 mmol/L (23-31); Chloride 116 mmol/L (98-107); Estimated GFR-MDRD 25; Glucose 134 mg/dL (80-115); Potassium 4.1 mmol/L (3.5-5.1); Sodium 145 mmol/L (136-145)
[2018-02-12] MEDS: Mometasone/Formoterol 120 PUFF INHALER INH SCH ×2 (06:40→22:19)
[2018-02-12 06:54] LABS: #Lymphocytes 0.2 thou/uL (1.20-3.40); #Monocytes 0.2 thou/uL (0.11-0.59); #Neutrophils 7.9 thou/uL (1.40-6.50); %Eosinophils 0.2 % (0.0-10.0); %Lymphocytes 2.7 % (21.0-51.0); %Monocytes 2.3 % (0.0-10.0); %Neutrophils 94.9 % (42.0-75.0); Hemoglobin 7.8 g/dL (12.0-16.0); Hypochromia SLIGHT = 6-15 cells (100X) (0-5/hpf); MDiff Complete? YES; Mean Corpuscular HGB CONC 32.7 g/dL (32.0-36.0); Mean Corpuscular Hemoglobin 29.5 pg (27.0-31.0); Mean Corpuscular Volume 90.1 fL (78.0-98.0); Mean Platelet Volume 7.8 fL (7.4-10.4); PLT Morphology Comment Appears Decreased; Platelet Count 68 thou/uL (130-400); RBC Distribution Width 17.6 % (11.5-14.5); Red Blood Cell (RBC) Count 2.66 mill/uL (4.20-5.40); White Blood Cell (WBC) Count 8.3 thou/uL (4.8-10.8)
[2018-02-12 07:15] LABS: ALV-art Gradient 120.575 (0-20); Actual Bicarbonate (HCO3a) 21.2 mEq/L (22-28); Base Excess (BEa) -4.8 mEq/L (-2.0 to +3.0); CO2 Tension 43.3 mmHg (35.0-45.0); Calcium, Ionized 1.1 mmol/L (1.12-1.30); Carboxyhemoglobin (COHb) 1.1 gm% (0.0-3.0); O2 Tension (PaO2) 110.5 mmHg (> 80.0); Puncture Site LRA; pH, Arterial 7.31 (7.35-7.45)
[2018-02-12] MEDS: Montelukast Sodium 10 mg Tablet PER TUBE SCH (08:39)
[2018-02-12] MEDS: SMX/TMP 800-160mg/20 ML UDCUP PO SCH ×2 (08:41→20:39)
[2018-02-12] MEDS: Mycophenolate 250 MG CAP PO SCH ×2 (08:41→20:37)
[2018-02-12] MEDS: Fludrocortisone Acetate 0.1 MG TAB PER TUBE SCH (08:42)
--- NOTE | 2018-02-12 08:42 | RAD ---
SINGLE VIEW CHEST: Date: 02/12/18 COMPARISON: 02/11/18. HISTORY: Ventilated patient with respiratory failure. FINDINGS: Single view of the chest shows an enlarged but stable cardiomediastinal silhouette. The tracheostomy and dialysis catheter are unchanged in position. There are small stable bilateral pleural effusions. IMPRESSION: Stable bilateral pleural effusions. POS: CET
[2018-02-12] MEDS ORDERED: Vancomycin HCl 1 GM in Premix Bag 1 BAG IVPB SCH (08:45)
--- NOTE | 2018-02-12 09:12 | PRG ---
DATE OF SERVICE: 02/12/2018 This morning she remains unresponsive. Pupils are dilated. PHYSICAL EXAMINATION: VITAL SIGNS: Pulse 112, blood pressure 131/74, O2 sats 100%, respirations 20. HEENT: Pupils are equal, unreactive, dilated. CHEST: Chest reveals bilateral rhonchi. There is a left mid chest appears to be a pericardial rub. CARDIAC: Sinus tachycardia versus SVT. ABDOMEN: Soft. NEUROLOGIC: Unresponsive. X-ray shows right pleural effusion, cardiomegaly. White count 8000, H&H 7 and 23, platelet count is 68, pO2 of 110, pCO2 47.31, rate of 20, 40%. Creat inine 2.3, BUN 51. IMPRESSION: 1. Multiorgan failure. 2. Anoxic injury. 3. Supraventricular tachycardia status post bilateral transplant. 4. Sepsis syndrome anoxic injury. 5. Respiratory failure. PLAN: She is clearly not weanable. Family to discuss about her code status. Empiric antibiotics fo r presumed sepsis. There is nothing to suspect at this stage. All cultures are negative. Discussed with family at length. They want to give her 72 hours before they make a decision. Once again, I a sked them whether they want to do chest compressions, shocking while she is deciding about withdrawal . They said they are going to make a decision in the next day or two. Long-term prognosis is grave. One-half hour critical care time.
[2018-02-12] MEDS: Tacrolimus 1 MG CAP PER TUBE SCH ×2 (09:40→20:39)
[2018-02-12 10:46] LABS: Vancomycin, Trough 43.9 ug/mL
[2018-02-12] MEDS: Diltiazem HCl 125 MG, Admixture Fee 1 EACH in Sodium Chloride 0.9% 100 ML IVPB SCH (10:57)
[2018-02-12] MEDS: Enoxaparin Sodium 30 MG/0.3 ML SYRINGE SC SCH (13:39)
--- NOTE | 2018-02-12 14:44 | PDOC.PN ---
- Subjective Encounter Start Date: 02/12/18 Encounter Start Time: 12:30 Subjective: pt intubated - Objective Resuscitation Status: Resuscitation Status FULL:Full Resuscitation Vital Signs & Weight: Vital Signs (12 hours) Temp Pulse Resp BP Pulse Ox 02/12/18 14:00 20 02/12/18 12:00 20 02/12/18 10:53 135 H 138/80 02/12/18 10:36 103 H 138/80 02/12/18 10:35 103 H 20 99 02/12/18 10:00 20 02/12/18 08:00 98.1 F 135 H 20 100 02/12/18 06:41 130 H 134/82 02/12/18 06:39 141 H 20 99 02/12/18 06:00 20 02/12/18 04:00 99.4 F 20 02/12/18 02:55 115 H 167/59 H 02/12/18 02:52 101 H 20 100 Weight Admit Weight 132 lb 0.91 oz Weight 132 lb 0.91 oz Most Recent Monitor Data Heart Rate from ECG 104 NIBP 115/53 NIBP BP-Mean 61 Respiration from ECG 23 SpO2 100 I&O: 02/11/18 02/12/18 02/13/18 06:59 06:59 06:59 Intake Total 1132 2935 100 Output Total 790 608 375 Balance 342 3390 -689 Result Diagrams: 02/12/18 05:10 02/12/18 05:10 Phys Exam - Physical Examination Neck: no nodes, no JVD, supple, full ROM mild rhonchi all over Cardiovascular: RRR, no significant murmur, no rub, gallop, irregular Dx/Plan (1) Cardiac arrest Code(s): I46.9 - CARDIAC ARREST, CAUSE UNSPECIFIED Status: Acute (2) Acute respiratory failure Code(s): J96.00 - ACUTE RESPIRATORY FAILURE, UNSP W HYPOXIA OR HYPERCAPNIA Status: Acute (3) Pulmonary fibrosis Code(s): J84.10 - PULMONARY FIBROSIS, UNSPECIFIED Status: Acute - Plan pt still is intubated -: family wants to wait until am to make decision * . Review of Systems - Review of Systems Other: pt intubated - Medications/Allergies Allergies/Adverse Reactions: Allergies Allergy/AdvReac Type Severity Reaction Status Date / Time No Known Allergies Allergy Verified 02/10/18 18:34 Medications: Current Medications Acetaminophen (Tylenol) 650 mg PER TUBE Q6H PRN PRN Reason: Fever > 101 Albuterol Sulfate (Albuterol Sulfate) 1.25 mg NEB [id number] [facility] Last Admin: 02/12/18 10:39 Dose: Not Given Albuterol/Ipratropium (Duoneb) 3 ml NEB [id number] [facility] Last Admin: 02/12/18 10:35 Dose: 3 ml Cholecalciferol (Vitamin D3) 1,000 units PER TUBE DAILY [facility] Last Admin: 02/12/18 09:40 Dose: 1,000 units Clonidine (Catapres) 0.1 mg PO Q4H PRN PRN Reason: Systolic BP > 180 Enoxaparin Sodium (Lovenox) 30 mg SC 0900 [facility] Last Admin: 02/12/18 13:39 Dose: Not Given Famotidine (Pepcid) 20 mg SLOW IVP 2100 [facility] Last Admin: 02/11/18 20:53 Dose: 20 mg Fludrocortisone Acetate (Florinef) 0.1 mg PER TUBE DAILY [facility] Last Admin: 02/12/18 08:42 Dose: 0.1 mg Hydralazine HCl (Apresoline) 10 mg SLOW IVP Q4H PRN PRN Reason: Systolic BP > 180 Sodium Chloride (Normal Saline 0.9%) 1,000 mls @ 100 mls/hr IV .Q10H [facility] Last Admin: 02/12/18 08:44 Dose: 1,000 mls Piperacillin Sod/Tazobactam (Sod 3.375 gm/ Sodium Chloride) 100 mls @ 200 mls/ hr IVPB Q6HR [facility] Last Admin: 02/12/18 11:23 Dose: 100 mls Diltiazem HCl 125 mg/Miscellaneous Medication 1 each/ Sodium Chloride 125 mls @ 0 mls/hr IVPB INF [facility]; Protocol Last Admin: 02/12/18 10:57 Dose: 125 mls Vancomycin HCl 1 gm/ Device 200 mls @ 200 mls/hr IVPB .PENDING LEVEL [facility] Lorazepam (Ativan) 2 mg SLOW IVP Q1HR PRN PRN Reason: Seizures Last Admin: 02/12/18 03:51 Dose: 2 mg Methylprednisolone Sodium Succinate (Solu-Medrol) 40 mg IVP Q6HR [facility] Last Admin: 02/12/18 11:23 Dose: 40 mg Metoprolol Tartrate (Lopressor) 5 mg IVP 0200,0800,1400,2000 [facility] Last Admin: 02/12/18 08:40 Dose: 5 mg Miscellaneous Medication (Pharmacy To Dose) 1 each IVPB PRN PRN PRN Reason: Pharmacy to dose Mometasone Furoate/Formoterol Fumar (Dulera 200 Mcg/5 Mcg Inhaler) 2 puff INH BID-RT [facility] Last Admin: 02/12/18 06:40 Dose: 2 puff Montelukast Sodium (Singulair) 10 mg PER TUBE DAILY [facility] Last Admin: 02/12/18 08:39 Dose: 10 mg Mycophenolate Mofetil (Cellcept) 500 mg PO BID [facility] Last Admin: 02/12/18 08:41 Dose: 500 mg Non-Formulary Medication (Acetylcysteine [Nac]) 1 tab PER TUBE TID [facility] Ondansetron HCl (Zofran) 4 mg IVP Q6H PRN PRN Reason: Nausea/Vomiting Sodium Chloride (Flush - Normal Saline) 10 ml IVF Q12HR [facility] Last Admin: 02/12/18 10:58 Dose: 10 ml Sodium Chloride (Flush - Normal Saline) 10 ml IVF PRN PRN PRN Reason: Saline Flush Tacrolimus (Prograf) 2 mg PER TUBE BID [facility] Last Admin: 02/12/18 09:40 Dose: 2 mg Trimethoprim/Sulfamethoxazole (Bactrim) 10 ml PO Q12HR [facility] Last Admin: 02/12/18 08:41 Dose: 10 ml Valganciclovir (Valcyte) 450 mg PO MWF [facility] Last Admin: 02/12/18 08:42 Dose: 450 mg
--- NOTE | 2018-02-12 16:55 | EKG ---
Test Reason : STAT Blood Pressure : / mmHG Vent. Rate : 116 BPM Atrial Rate : 116 BPM P-R Int : 124 ms QRS Dur : 086 ms QT Int : 362 ms P-R-T Axes : 008 -57 090 degrees QTc Int : 503 ms Normal sinus rhythm Atrial tachycardia Left anterior fascicular block Moderate voltage criteria for LVH, may be normal variant Abnormal ECG Confirmed by JAYNE TRINIDAD ([id number]) on 02/12/2018 4:54:51 PM Referred By: WILLARD Confirmed By:JAYNE TRINIDAD
--- NOTE | 2018-02-12 17:05 | EKG ---
Test Reason : STAT Blood Pressure : / mmHG Vent. Rate : 149 BPM Atrial Rate : 149 BPM P-R Int : 124 ms QRS Dur : 084 ms QT Int : 292 ms P-R-T Axes : 014 -64 096 degrees QTc Int : 459 ms Sinus tachycardia with Premature atrial complexes Left anterior fascicular block Minimal voltage criteria for LVH, may be normal variant Abnormal ECG Confirmed by JAYNE TRINIDAD ([id number]) on 02/12/2018 5:05:27 PM Referred By: WILLARD Confirmed By:JAYNE TRINIDAD
[2018-02-12] MEDS: Famotidine/PF 20 mg/2ml Vial SLOW IVP SCH (20:37)
[2018-02-13] MEDS: Piperacillin/Tazobactam 3.375 GM in Sodium Chloride 0.9% 100 ML IVPB SCH ×5 (00:02→23:47)
[2018-02-13] MEDS: Albuterol Sulfate 1.25 MG/3 ML NEB NEB SCH ×5 (02:12→23:54)
[2018-02-13 05:13] LABS: Anion Gap 12 mmol/L (10-20); BUN (Urea Nitrogen) 53 mg/dL (9.8-20.1); Calc. Creatinine Clearance 23 mL/min (70-130); Calcium 8.1 mg/dL (7.8-10.44); Carbon Dioxide 18 mmol/L (23-31); Chloride 118 mmol/L (98-107); Estimated GFR-MDRD 25; Glucose 134 mg/dL (80-115); Potassium 3.4 mmol/L (3.5-5.1); Sodium 145 mmol/L (136-145)
[2018-02-13 05:36] LABS: Band 7 % (5-11); Lymphocytes 1 % (21-51); MDiff Complete? YES; Mean Corpuscular HGB CONC 32.5 g/dL (32.0-36.0); Mean Corpuscular Hemoglobin 29.1 pg (27.0-31.0); Mean Corpuscular Volume 89.5 fL (78.0-98.0); Mean Platelet Volume 7.5 fL (7.4-10.4); Monocytes 1 % (0-10); Neutrophil 91 % (42-75); PLT Morphology Comment Appears Decreased; Platelet Count 72 thou/uL (130-400); RBC Distribution Width 17.5 % (11.5-14.5); Red Blood Cell (RBC) Count 2.74 mill/uL (4.20-5.40)
[2018-02-13] MEDS: Sodium Chloride 0.9% 1,000 ML IV SCH ×2 (06:36→15:47)
[2018-02-13] MEDS: Mometasone/Formoterol 120 PUFF INHALER INH SCH ×3 (07:00→19:34)
[2018-02-13 07:49] LABS: Actual Bicarbonate (HCO3a) 17.7 mEq/L (22-28); Base Excess (BEa) -8.2 mEq/L (-2.0 to +3.0); CO2 Tension 37.5 mmHg (35.0-45.0); Hemoglobin (Hb) 8.3 g/dL (12.0-16.0); O2 Tension (PaO2) 97.7 mmHg (> 80.0); pH, Arterial 7.29 (7.35-7.45)
[2018-02-13 07:50] LABS: ALV-art Gradient 140.625 (0-20); Calcium, Ionized 1.16 mmol/L (1.12-1.30); Carboxyhemoglobin (COHb) 1.4 gm% (0.0-3.0); Potassium - ABG Lab 3.4 mmol/L (3.70-5.30); Puncture Site RRA
--- NOTE | 2018-02-13 08:10 | PRG ---
DATE OF SERVICE: 02/13/2018 She remains intubated on the vent, unresponsive, tachypneic at 20 breath. Pupils are about 3 mm toda y. PHYSICAL EXAMINATION: VITAL SIGNS: Temperature 98, blood pressure 115/67. She is afebrile. I's and O's are 2318 in, 86 0 out. NEURO: Neurologically, she is unresponsive. CHEST: Chest reveals bilateral rhonchi. CARDIAC: Normal S1, S2, no gallops. ABDOMEN: Soft. NEURO: Neurologically as above. White count 10,000, H&H 8 and 24, platelet count is 72, pO2 is 97, pCO2 of 37, pH 7.29, rate of 20, 4 0%. Creatinine 2.3, BUN 53. Vancomycin level was 43. All cultures are negative. X-ray shows stable chronic changes. IMPRESSION: 1. Bilateral lung transplant 4 years ago in [place] for end-stage lung disease. 2. Renal failure. 3. Anoxic injury. PLAN: At this stage, still awaiting input from family members. I had a lengthy discussion with them. 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 They stated they wanted to give her 3 days before they made a decision about withdrawal of care. Today is day #3. I am going to start low dose feedings. Supportive care. Discontinue vancomycin. No reason to suspec t Staph at this stage. Continue Zosyn. Antirejection medication. We will follow and discuss. One-half hour of critical care time.
--- NOTE | 2018-02-13 08:19 | RAD ---
PORTABLE AP CHEST XRAY: DATE: 02/03/18. HISTORY: On ventilator. COMPARISON: 02/12/18. FINDINGS: Tracheostomy device and tunneled left internal jugular vein hemodialysis catheter remain in place and unchanged in position. Postsurgical changes with multiple surgical clips and median sternotomy wire s again overlie the cardiac silhouette and mediastinum. Pleural and parenchymal changes are again se en at each lung base probably related to small bilateral pleural effusions and associated atelectasis . Pulmonary vasculature is at the upper limits of normal but does appear improved from prior exam. The chest is otherwise stable from the prior study. IMPRESSION: 1. Bilateral pleural and parenchymal lung changes probably related to small bilateral pleural effusi ons and atelectasis similar to prior exam. 2. Mild improvement in pulmonary vascular congestion. POS: TENA
[2018-02-13] MEDS: Mycophenolate 250 MG CAP PO SCH ×2 (09:01→21:34)
[2018-02-13] MEDS: Fludrocortisone Acetate 0.1 MG TAB PER TUBE SCH (09:01)
[2018-02-13] MEDS: SMX/TMP 800-160mg/20 ML UDCUP PO SCH ×2 (09:01→21:34)
[2018-02-13] MEDS: Montelukast Sodium 10 mg Tablet PER TUBE SCH (09:03)
[2018-02-13] MEDS: Tacrolimus 1 MG CAP PER TUBE SCH ×2 (09:04→21:35)
[2018-02-13] MEDS: Diltiazem HCl 125 MG, Admixture Fee 1 EACH in Sodium Chloride 0.9% 100 ML IVPB SCH (09:10)
--- NOTE | 2018-02-13 10:21 | EEG ---
Referring Physician: DR. DELVIN HAGEN EEG # [id number] TEST TYPE: ROUTINE PORTABLE INPATIENT REASON FOR EEG: DECREASED LEVEL OF RESPONSIVENESS DATE OF EEG BEING DONE: 02/11/18 EEG DESCRIPTION: This is a 21 channel digital EEG recording. Electrodes are placed using the international 10-20 electrode placement system. The background rhythm is predominately 5 hertz, low to medium amplitude Theta rhythm. There is also 2-3 hertz, medium amplitude, intermittent, diffuse Delta rhythm. There are also 14-20 hertz, low amplitude, intermittent, diffuse Beta rhythm. This EEG is severely degraded by EMG artifact. HYPERVENTILATION: Could not be done. PHOTIC STIMULATION: Showed no effect. There are no epileptiform discharges, sharp transients or asymmetry noted. EKG LEAD: Shows 82 beats per minute, regular rhythm. IMPRESSION: THIS IS AN ABNORMAL EEG. IT SHOWS MODERATE NONSPECIFIC CEREBRAL DYSFUNCTION. HOWEVER, THERE ARE NO EPILEPTIFORM DISCHARGES, SHARP TRANSIENTS OR ASYMMETRY NOTED. THIS WOULD CORRELATE WITH UNDERLYING TOXIC-METABOLIC ENCEPHALOPATHY. PLEASE CORRELATE THESE FINDINGS CLINICALLY. Custodial Supervisor: LORRI Social Service Liaison: [email or web address] FLOWERS
[2018-02-13] MEDS ORDERED: Potassium Chloride 10 MEQ TAB PO SCH (11:00)
--- NOTE | 2018-02-13 15:02 | PDOC.PN ---
- Subjective Encounter Start Date: 02/13/18 Encounter Start Time: 09:30 Subjective: pt intubated - Objective Resuscitation Status: Resuscitation Status FULL:Full Resuscitation Vital Signs & Weight: Vital Signs (12 hours) Temp Pulse Resp BP Pulse Ox 02/13/18 14:00 30 H 02/13/18 12:00 98.7 F 33 H 02/13/18 11:53 91 120/59 L 02/13/18 11:51 90 30 H 99 02/13/18 10:00 35 H 02/13/18 08:00 36 H 02/13/18 07:26 98.5 F 98 23 H 99 02/13/18 07:00 98.5 F 02/13/18 06:41 90 118/63 02/13/18 06:39 97 20 99 02/13/18 06:00 20 02/13/18 05:00 98.4 F 02/13/18 04:00 20 Weight Admit Weight 132 lb 0.91 oz Weight 132 lb 0.91 oz Most Recent Monitor Data Heart Rate from ECG 96 NIBP 112/57 NIBP BP-Mean 75 Respiration from ECG 29 SpO2 97 I&O: 02/12/18 02/13/18 02/14/18 06:59 06:59 06:59 Intake Total 2935 2319.7 100 Output Total 608 860 250 Balance 2327 1459.7 -150 Result Diagrams: 02/13/18 04:20 02/13/18 04:20 Phys Exam - Physical Examination Neck: no nodes, no JVD, supple, full ROM mild rhonchi all over Cardiovascular: RRR, no significant murmur, no rub, gallop, irregular Dx/Plan (1) Cardiac arrest Code(s): I46.9 - CARDIAC ARREST, CAUSE UNSPECIFIED Status: Acute (2) Acute respiratory failure Code(s): J96.00 - ACUTE RESPIRATORY FAILURE, UNSP W HYPOXIA OR HYPERCAPNIA Status: Acute (3) Pulmonary fibrosis Code(s): J84.10 - PULMONARY FIBROSIS, UNSPECIFIED Status: Acute - Plan K replaced, pt's ng tube feeding have started -: spoke with daughter who is waiting for family to come -: possible extubation per daugher who is POA -: on friday or friday * . Review of Systems - Review of Systems Other: unable to do - Medications/Allergies Allergies/Adverse Reactions: Allergies Allergy/AdvReac Type Severity Reaction Status Date / Time No Known Allergies Allergy Verified 02/10/18 18:34 Medications: Current Medications Acetaminophen (Tylenol) 650 mg PER TUBE Q6H PRN PRN Reason: Fever > 101 Albuterol Sulfate (Albuterol Sulfate) 1.25 mg NEB [id number] [facility] Last Admin: 02/13/18 02:12 Dose: 1.25 mg Albuterol/Ipratropium (Duoneb) 3 ml NEB [id number] [facility] Last Admin: 02/13/18 11:51 Dose: 3 ml Cholecalciferol (Vitamin D3) 1,000 units PER TUBE DAILY [facility] Last Admin: 02/13/18 09:04 Dose: 1,000 units Clonidine (Catapres) 0.1 mg PO Q4H PRN PRN Reason: Systolic BP > 180 Famotidine (Pepcid) 20 mg SLOW IVP 2100 [facility] Last Admin: 02/12/18 20:37 Dose: 20 mg Fludrocortisone Acetate (Florinef) 0.1 mg PER TUBE DAILY [facility] Last Admin: 02/13/18 09:01 Dose: 0.1 mg Hydralazine HCl (Apresoline) 10 mg SLOW IVP Q4H PRN PRN Reason: Systolic BP > 180 Sodium Chloride (Normal Saline 0.9%) 1,000 mls @ 100 mls/hr IV .Q10H [facility] Last Admin: 02/13/18 06:36 Dose: 1,000 mls Piperacillin Sod/Tazobactam (Sod 3.375 gm/ Sodium Chloride) 100 mls @ 200 mls/ hr IVPB Q6HR [facility] Last Admin: 02/13/18 11:32 Dose: 100 mls Diltiazem HCl 125 mg/Miscellaneous Medication 1 each/ Sodium Chloride 125 mls @ 0 mls/hr IVPB INF [facility]; Protocol Last Admin: 02/13/18 09:10 Dose: 125 mls Lorazepam (Ativan) 2 mg SLOW IVP Q1HR PRN PRN Reason: Seizures Last Admin: 02/12/18 03:51 Dose: 2 mg Methylprednisolone Sodium Succinate (Solu-Medrol) 40 mg IVP Q6HR [facility] Last Admin: 02/13/18 11:32 Dose: 40 mg Mometasone Furoate/Formoterol Fumar (Dulera 200 Mcg/5 Mcg Inhaler) 2 puff INH BID-RT [facility] Last Admin: 02/12/18 22:19 Dose: 2 puff Montelukast Sodium (Singulair) 10 mg PER TUBE DAILY [facility] Last Admin: 02/13/18 09:03 Dose: 10 mg Mycophenolate Mofetil (Cellcept) 500 mg PO BID [facility] Last Admin: 02/13/18 09:01 Dose: 500 mg Non-Formulary Medication (Acetylcysteine [Nac]) 1 tab PER TUBE TID [facility] Ondansetron HCl (Zofran) 4 mg IVP Q6H PRN PRN Reason: Nausea/Vomiting Sodium Chloride (Flush - Normal Saline) 10 ml IVF Q12HR [facility] Last Admin: 02/13/18 09:05 Dose: 10 ml Sodium Chloride (Flush - Normal Saline) 10 ml IVF PRN PRN PRN Reason: Saline Flush Tacrolimus (Prograf) 2 mg PER TUBE BID [facility] Last Admin: 02/13/18 09:04 Dose: 2 mg Trimethoprim/Sulfamethoxazole (Bactrim) 10 ml PO Q12HR [facility] Last Admin: 02/13/18 09:01 Dose: 10 ml Valganciclovir (Valcyte) 450 mg PO MWF [facility] Last Admin: 02/12/18 08:42 Dose: 450 mg
[2018-02-13] MEDS: Famotidine/PF 20 mg/2ml Vial SLOW IVP SCH (21:33)
[2018-02-14] MEDS: Albuterol Sulfate 1.25 MG/3 ML NEB NEB SCH ×6 (01:49→23:23)
[2018-02-14 04:59] LABS: Anion Gap 14 mmol/L (10-20); BUN (Urea Nitrogen) 58 mg/dL (9.8-20.1); Calc. Creatinine Clearance 21 mL/min (70-130); Calcium 8.3 mg/dL (7.8-10.44); Carbon Dioxide 16 mmol/L (23-31); Chloride 119 mmol/L (98-107); Estimated GFR-MDRD 23; Glucose 142 mg/dL (80-115); Potassium 4.4 mmol/L (3.5-5.1); Sodium 145 mmol/L (136-145)
[2018-02-14 05:36] LABS: Anisocytosis SLIGHT = 6-15 cells (100X) (0-5/hpf); Band 12 % (5-11); Hemoglobin 8.6 g/dL (12.0-16.0); Hypochromia SLIGHT = 6-15 cells (100X) (0-5/hpf); Lymphocytes 1 % (21-51); MDiff Complete? YES; Mean Corpuscular HGB CONC 31.3 g/dL (32.0-36.0); Mean Corpuscular Hemoglobin 28.5 pg (27.0-31.0); Mean Corpuscular Volume 90.9 fL (78.0-98.0); Mean Platelet Volume 11.2 fL (7.4-10.4); Monocytes 1 % (0-10); Neutrophil 86 % (42-75); PLT Morphology Comment Appears Decreased; Platelet Count 127 thou/uL (130-400); Polychromasia SLIGHT = 2-3 cells (100X) (0-2/hpf); RBC Distribution Width 17.7 % (11.5-14.5); White Blood Cell (WBC) Count 22.7 thou/uL (4.8-10.8)
[2018-02-14] MEDS: Piperacillin/Tazobactam 3.375 GM in Sodium Chloride 0.9% 100 ML IVPB SCH ×3 (06:00→17:40)
[2018-02-14] MEDS: Sodium Chloride 0.9% 1,000 ML IV SCH (06:00)
[2018-02-14] MEDS: Mometasone/Formoterol 120 PUFF INHALER INH SCH ×2 (07:00→18:42)
[2018-02-14 08:47] LABS: Actual Bicarbonate (HCO3a) 17.7 mEq/L (22-28); CO2 Tension 55.5 mmHg (35.0-45.0); O2 Tension (PaO2) 87.8 mmHg (> 80.0); pH, Arterial 7.12 (7.35-7.45)
[2018-02-14 08:48] LABS: Base Excess (BEa) -11.3 mEq/L (-2.0 to +3.0); Hemoglobin (Hb) 9.3 g/dL (12.0-16.0)
[2018-02-14 08:49] LABS: ALV-art Gradient 128.025 (0-20); Calcium, Ionized 1.21 mmol/L (1.12-1.30); Carboxyhemoglobin (COHb) 0.9 gm% (0.0-3.0); Potassium - ABG Lab 4.2 mmol/L (3.70-5.30); Puncture Site RBA
--- NOTE | 2018-02-14 09:20 | RAD ---
AP VIEW CHEST: Date: 02/14/18 INDICATION: 62-year-old female with intubation. IMPRESSION: The bilateral pleural effusions are decreased in size. The pulmonary vascular congestion appears slig htly less prominent. Findings may reflect improving CHF or improving volume status. Dialysis catheter is unchanged. Tracheostomy tube is unchanged. Surgical changes of the upper mediastinum and upper ab domen are stable. The dense opacity within the retrocardiac left lower lobe persists. This is suspici ous for pneumonia. Recommend correlation and continued follow-up. POS: TENA
[2018-02-14] MEDS: Fludrocortisone Acetate 0.1 MG TAB PER TUBE SCH (09:47)
[2018-02-14] MEDS: Tacrolimus 1 MG CAP PER TUBE SCH ×2 (09:47→21:57)
[2018-02-14] MEDS: Mycophenolate 250 MG CAP PO SCH ×2 (09:47→21:54)
[2018-02-14] MEDS: Diltiazem HCl 125 MG, Admixture Fee 1 EACH in Sodium Chloride 0.9% 100 ML IVPB SCH (09:48)
[2018-02-14] MEDS: Dextrose 5% in Water 1,000 ML IV SCH ×2 (09:57→21:54)
[2018-02-14] MEDS: SMX/TMP 800-160mg/20 ML UDCUP PO SCH ×2 (11:02→21:55)
--- NOTE | 2018-02-14 19:39 | PDOC.PN ---
- Subjective Encounter Start Date: 02/14/18 Encounter Start Time: 09:30 Subjective: pt intubated, family at bedside - Objective Resuscitation Status: Resuscitation Status FULL:Full Resuscitation Vital Signs & Weight: Vital Signs (12 hours) Temp Pulse Resp BP Pulse Ox 02/14/18 18:44 88 02/14/18 18:43 100 02/14/18 18:42 100 02/14/18 18:00 24 H 02/14/18 16:00 98.0 F 24 H 02/14/18 14:50 99 109/68 02/14/18 14:48 100 24 H 99 02/14/18 14:00 24 H 02/14/18 12:30 115 H 137/70 02/14/18 12:22 116 H 24 H 99 02/14/18 12:00 98.8 F 24 H 02/14/18 10:00 24 H 02/14/18 08:00 98.1 F 93 24 H 98 Weight Admit Weight 132 lb 0.91 oz Weight 132 lb 0.91 oz Most Recent Monitor Data Heart Rate from ECG 93 NIBP 94/55 NIBP BP-Mean 65 Respiration from ECG 24 SpO2 100 I&O: 02/13/18 02/14/18 02/15/18 06:59 06:59 06:59 Intake Total 2319.7 3485.1 1637.2 Output Total 860 900 430 Balance 1459.7 2585.1 1207.2 Result Diagrams: 02/14/18 03:30 02/14/18 03:30 Phys Exam - Physical Examination Neck: no nodes, no JVD, supple, full ROM mild wheezing all over Cardiovascular: RRR, no significant murmur, no rub, gallop, irregular Gastrointestinal: soft, non-tender, no distention, positive bowel sounds Dx/Plan (1) Cardiac arrest Code(s): I46.9 - CARDIAC ARREST, CAUSE UNSPECIFIED Status: Acute (2) Acute respiratory failure Code(s): J96.00 - ACUTE RESPIRATORY FAILURE, UNSP W HYPOXIA OR HYPERCAPNIA Status: Acute (3) Pulmonary fibrosis Code(s): J84.10 - PULMONARY FIBROSIS, UNSPECIFIED Status: Acute (4) Aspiration pneumonia Code(s): J69.0 - PNEUMONITIS DUE TO INHALATION OF FOOD AND VOMIT Status: Acute - Plan pt continues to have not much response -: she is tachycardiac and is being tx for aspiration pna -: pt's son and daughter are going to be in town [place]. -: overall prognosis is poor * . Review of Systems - Review of Systems Other: unable to obtain - Medications/Allergies Allergies/Adverse Reactions: Allergies Allergy/AdvReac Type Severity Reaction Status Date / Time No Known Allergies Allergy Verified 02/10/18 18:34 Medications: Current Medications Acetaminophen (Tylenol) 650 mg PER TUBE Q6H PRN PRN Reason: Fever > 101 Albuterol Sulfate (Albuterol Sulfate) 1.25 mg NEB [id number] CINDY Last Admin: 02/14/18 18:42 Dose: Not Given Albuterol/Ipratropium (Duoneb) 3 ml NEB [id number] CINDY Last Admin: 02/14/18 18:43 Dose: 3 ml Clonidine (Catapres) 0.1 mg PO Q4H PRN PRN Reason: Systolic BP > 180 Famotidine (Pepcid) 20 mg SLOW IVP 2100 [facility] Last Admin: 02/13/18 21:33 Dose: 20 mg Fludrocortisone Acetate (Florinef) 0.1 mg PER TUBE DAILY [facility] Last Admin: 02/14/18 09:47 Dose: 0.1 mg Hydralazine HCl (Apresoline) 10 mg SLOW IVP Q4H PRN PRN Reason: Systolic BP > 180 Piperacillin Sod/Tazobactam (Sod 3.375 gm/ Sodium Chloride) 100 mls @ 200 mls/ hr IVPB Q6HR [facility] Last Admin: 02/14/18 17:40 Dose: 100 mls Diltiazem HCl 125 mg/Miscellaneous Medication 1 each/ Sodium Chloride 125 mls @ 0 mls/hr IVPB INF CINDY; Protocol Last Admin: 02/14/18 09:48 Dose: 125 mls Dextrose/Water (D5w) 1,000 mls @ 75 mls/hr IV .[id number] [facility] Last Admin: 02/14/18 09:57 Dose: 1,000 mls Lorazepam (Ativan) 2 mg SLOW IVP Q1HR PRN PRN Reason: Seizures Last Admin: 02/12/18 03:51 Dose: 2 mg Methylprednisolone Sodium Succinate (Solu-Medrol) 20 mg IVP Q6HR [facility] Last Admin: 02/14/18 17:40 Dose: 20 mg Mometasone Furoate/Formoterol Fumar (Dulera 200 Mcg/5 Mcg Inhaler) 2 puff INH BID-RT [facility] Last Admin: 02/14/18 18:42 Dose: 2 puff Mycophenolate Mofetil (Cellcept) 500 mg PO BID [facility] Last Admin: 02/14/18 09:47 Dose: 500 mg Non-Formulary Medication (Acetylcysteine [Nac]) 1 tab PER TUBE TID [facility] Ondansetron HCl (Zofran) 4 mg IVP Q6H PRN PRN Reason: Nausea/Vomiting Sodium Chloride (Flush - Normal Saline) 10 ml IVF Q12HR [facility] Last Admin: 02/14/18 09:47 Dose: 10 ml Sodium Chloride (Flush - Normal Saline) 10 ml IVF PRN PRN PRN Reason: Saline Flush Tacrolimus (Prograf) 2 mg PER TUBE BID [facility] Last Admin: 02/14/18 09:47 Dose: 2 mg Trimethoprim/Sulfamethoxazole (Bactrim) 10 ml PO Q12HR [facility] Last Admin: 02/14/18 11:02 Dose: 10 ml Valganciclovir (Valcyte) 450 mg PO MWF [facility] Last Admin: 02/12/18 08:42 Dose: 450 mg
--- NOTE | 2018-02-14 21:27 | PRG ---
DATE OF SERVICE: 02/14/2018 OBJECTIVE: Ms. Hernandez heart rate is 88, respiratory rates in the 20s, blood pressure 94/55. Intake and output is positive 2585. LUNGS: Clear anteriorly. HEART: Regular rate and rhythm. ABDOMEN: Soft. EXTREMITIES: Without asymmetry. She has no response to painful stimuli. Chest radiograph shows bilateral pleural effusions. IMPRESSION: 1. Anoxic brain injury. 2. Status post bilateral lung transplant. 3. 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 4. Renal failure. 5. Status post tracheostomy. Family still has apparently not made this decision about withdrawal of care. She has no chance for functional recovery in my opinion.
[2018-02-14] MEDS: Famotidine/PF 20 mg/2ml Vial SLOW IVP SCH (21:54)
[2018-02-15] MEDS: Piperacillin/Tazobactam 3.375 GM in Sodium Chloride 0.9% 100 ML IVPB SCH ×4 (00:45→17:09)
[2018-02-15] MEDS: Albuterol Sulfate 1.25 MG/3 ML NEB NEB SCH ×5 (04:03→18:57)
[2018-02-15 04:53] LABS: Anion Gap 11 mmol/L (10-20); BUN (Urea Nitrogen) 69 mg/dL (9.8-20.1); Calc. Creatinine Clearance 19 mL/min (70-130); Calcium 7.9 mg/dL (7.8-10.44); Carbon Dioxide 17 mmol/L (23-31); Chloride 119 mmol/L (98-107); Estimated GFR-MDRD 21; Glucose 292 mg/dL (80-115); Potassium 3.4 mmol/L (3.5-5.1); Sodium 144 mmol/L (136-145)
[2018-02-15 05:49] LABS: #Lymphocytes 0.3 thou/uL (1.20-3.40); #Monocytes 0.5 thou/uL (0.11-0.59); #Neutrophils 9.4 thou/uL (1.40-6.50); %Lymphocytes 2.6 % (21.0-51.0); %Monocytes 4.7 % (0.0-10.0); %Neutrophils 92.6 % (42.0-75.0); Anisocytosis SLIGHT = 6-15 cells (100X) (0-5/hpf); Hemoglobin 7.8 g/dL (12.0-16.0); MDiff Complete? YES; Mean Corpuscular HGB CONC 32.7 g/dL (32.0-36.0); Mean Corpuscular Hemoglobin 29.4 pg (27.0-31.0); Mean Corpuscular Volume 89.9 fL (78.0-98.0); Mean Platelet Volume 9.1 fL (7.4-10.4); PLT Morphology Comment Appears Decreased; Platelet Count 84 thou/uL (130-400); RBC Distribution Width 17.8 % (11.5-14.5); Red Blood Cell (RBC) Count 2.66 mill/uL (4.20-5.40); White Blood Cell (WBC) Count 10.1 thou/uL (4.8-10.8)
[2018-02-15] MEDS: Mometasone/Formoterol 120 PUFF INHALER INH SCH ×2 (07:00→19:02)
[2018-02-15] MEDS: SMX/TMP 800-160mg/20 ML UDCUP PO SCH ×2 (08:23→23:03)
[2018-02-15] MEDS: Fludrocortisone Acetate 0.1 MG TAB PER TUBE SCH (08:29)
[2018-02-15] MEDS: Tacrolimus 1 MG CAP PER TUBE SCH ×2 (08:29→23:04)
[2018-02-15] MEDS: Mycophenolate 250 MG CAP PO SCH ×2 (08:31→23:03)
[2018-02-15 08:50] LABS: CO2 Tension 26.3 mmHg (35.0-45.0); pH, Arterial 7.35 (7.35-7.45)
[2018-02-15 08:51] LABS: Actual Bicarbonate (HCO3a) 14.2 mEq/L (22-28); Base Excess (BEa) -10.1 mEq/L (-2.0 to +3.0); Calcium, Ionized 1.19 mmol/L (1.12-1.30); Carboxyhemoglobin (COHb) 0.6 gm% (0.0-3.0); Hemoglobin (Hb) 9.8 g/dL (12.0-16.0); Potassium - ABG Lab 3.3 mmol/L (3.70-5.30); Puncture Site RBA
[2018-02-15 08:52] LABS: ALV-art Gradient 135.325 (0-20)
--- NOTE | 2018-02-15 09:25 | RAD ---
AP VIEW CHEST: Date: 02/15/18 INDICATION: Intubation. COMPARISON: Prior study dated 02/14/18. IMPRESSION: Tracheostomy tube and dialysis catheter unchanged. Cardiomegaly is stable. Small bilateral pleural ef fusions persist. No pneumothorax is evident. POS: PETE
[2018-02-15] MEDS ORDERED: Norepinephrine 8 MG in Dextrose 5% in Water 242 ML IVPB PRN (12:40)
[2018-02-15] MEDS ORDERED: Dextrose 5% in Water 1,000 ML IV SCH (12:45)
[2018-02-15] MEDS: Dextrose 5% in Water 1,000 ML IV SCH (13:06)
[2018-02-15] MEDS ORDERED: Sodium Chloride 0.9% 1,000 ML IV SCH (13:30)
--- NOTE | 2018-02-15 14:30 | PDOC.PN ---
- Subjective Encounter Start Date: 02/15/18 Encounter Start Time: 11:00 Subjective: pt intubated, low bp - Objective Resuscitation Status: Resuscitation Status DNR:Do Not Resuscitate Vital Signs & Weight: Vital Signs (12 hours) Temp Pulse Resp BP Pulse Ox 02/15/18 14:04 91 24 H 100 02/15/18 14:00 97.4 F L 24 H 02/15/18 12:00 98.0 F 02/15/18 11:26 89 87/48 L 02/15/18 11:25 82 24 H 100 02/15/18 10:00 97.3 F L 24 H 02/15/18 08:00 94.7 F L 88 24 H 100 02/15/18 06:44 94 91/52 L 02/15/18 06:42 93 24 H 100 02/15/18 06:00 24 H 02/15/18 04:00 98.4 F 02/15/18 03:47 89 Weight Admit Weight 132 lb 0.91 oz Weight 132 lb 0.91 oz Most Recent Monitor Data Heart Rate from ECG 91 NIBP 87/51 NIBP BP-Mean 65 Respiration from ECG 24 SpO2 100 I&O: 02/14/18 02/15/18 02/16/18 06:59 06:59 06:59 Intake Total 3485.1 3154.6 1260 Output Total 900 1490 345 Balance 2585.1 1664.6 915 Result Diagrams: 02/15/18 03:45 02/15/18 03:45 Phys Exam - Physical Examination mild rhonchi Cardiovascular: RRR, no significant murmur, no rub, gallop, irregular Gastrointestinal: soft, non-tender, no distention, positive bowel sounds Musculoskeletal: pulses present, edema present Dx/Plan (1) Cardiac arrest Code(s): I46.9 - CARDIAC ARREST, CAUSE UNSPECIFIED Status: Acute (2) Acute respiratory failure Code(s): J96.00 - ACUTE RESPIRATORY FAILURE, UNSP W HYPOXIA OR HYPERCAPNIA Status: Acute (3) Pulmonary fibrosis Code(s): J84.10 - PULMONARY FIBROSIS, UNSPECIFIED Status: Acute (4) Aspiration pneumonia Code(s): J69.0 - PNEUMONITIS DUE TO INHALATION OF FOOD AND VOMIT Status: Acute - Plan pt hypotensive will hold cardizem drip for now -: will give Ns 1L and may start drip -: spoke to sister at bedside and daughter on the phone about pt's worsening -: condition. Pt's sister and daughter wants everything to be done till pt's -: other two children are present. * . Review of Systems - Review of Systems Other: unable to obtain - Medications/Allergies Allergies/Adverse Reactions: Allergies Allergy/AdvReac Type Severity Reaction Status Date / Time No Known Allergies Allergy Verified 02/10/18 18:34 Medications: Current Medications Acetaminophen (Tylenol) 650 mg PER TUBE Q6H PRN PRN Reason: Fever > 101 Albuterol Sulfate (Albuterol Sulfate) 1.25 mg NEB [id number] CINDY Last Admin: 02/15/18 14:05 Dose: Not Given Albuterol/Ipratropium (Duoneb) 3 ml NEB [id number] CINDY Last Admin: 02/15/18 14:04 Dose: 3 ml Clonidine (Catapres) 0.1 mg PO Q4H PRN PRN Reason: Systolic BP > 180 Famotidine (Pepcid) 20 mg SLOW IVP 2100 [facility] Last Admin: 02/14/18 21:54 Dose: 20 mg Fludrocortisone Acetate (Florinef) 0.1 mg PER TUBE DAILY [facility] Last Admin: 02/15/18 08:29 Dose: 0.1 mg Hydralazine HCl (Apresoline) 10 mg SLOW IVP Q4H PRN PRN Reason: Systolic BP > 180 Piperacillin Sod/Tazobactam (Sod 3.375 gm/ Sodium Chloride) 100 mls @ 200 mls/ hr IVPB Q6HR [facility] Last Admin: 02/15/18 12:04 Dose: 100 mls Diltiazem HCl 125 mg/Miscellaneous Medication 1 each/ Sodium Chloride 125 mls @ 0 mls/hr IVPB INF CINDY; Protocol Last Admin: 02/14/18 09:48 Dose: 125 mls Dextrose/Water (D5w) 1,000 mls @ 75 mls/hr IV .[id number] [facility] Last Admin: 02/15/18 13:06 Dose: 1,000 mls Norepinephrine Bitartrate 8 mg (/ Dextrose/Water) 250 mls @ 0 mls/hr IVPB INF PRN; Protocol PRN Reason: TO MAINTAIN MAP > 65 Lorazepam (Ativan) 2 mg SLOW IVP Q1HR PRN PRN Reason: Seizures Last Admin: 02/12/18 03:51 Dose: 2 mg Methylprednisolone Sodium Succinate (Solu-Medrol) 20 mg IVP Q6HR [facility] Last Admin: 02/15/18 12:53 Dose: 20 mg Mometasone Furoate/Formoterol Fumar (Dulera 200 Mcg/5 Mcg Inhaler) 2 puff INH BID-RT [facility] Last Admin: 02/15/18 07:00 Dose: Not Given Mycophenolate Mofetil (Cellcept) 500 mg PO BID [facility] Last Admin: 02/15/18 08:31 Dose: 500 mg Ondansetron HCl (Zofran) 4 mg IVP Q6H PRN PRN Reason: Nausea/Vomiting Sodium Chloride (Flush - Normal Saline) 10 ml IVF Q12HR [facility] Last Admin: 02/15/18 08:30 Dose: 10 ml Sodium Chloride (Flush - Normal Saline) 10 ml IVF PRN PRN PRN Reason: Saline Flush Tacrolimus (Prograf) 2 mg PER TUBE BID [facility] Last Admin: 02/15/18 08:29 Dose: 2 mg Trimethoprim/Sulfamethoxazole (Bactrim) 10 ml PO Q12HR [facility] Last Admin: 02/15/18 08:23 Dose: 10 ml Valganciclovir (Valcyte) 450 mg PO MWF [facility] Last Admin: 02/15/18 08:33 Dose: 450 mg
[2018-02-15 15:03] VITALS: BP 105/56
[2018-02-15 15:55] LABS: Bilirubin, Total 0.2 mg/dL (0.2-1.2)
--- NOTE | 2018-02-15 16:29 | PRG ---
DATE OF SERVICE: 02/15/2018 SUBJECTIVE: Natali Wills did not respond to sternal rub. OBJECTIVE: VITAL SIGNS: She is afebrile, heart rate is 89, blood pressure 105/56. LUNGS: Clear. HEART: Regular rhythm. ABDOMEN: Soft. EXTREMITIES: Without asymmetry. IMAGING: Chest radiograph shows no new infiltrates. LABORATORY DATA: White count 10.1, hemoglobin 7.8, platelets 84,000. Electrolytes, sodium 144, potassium 3.4, chloride 119, bicarbonate 17, BUN 69, creatinine was 2.76, w hich is slowly declining. IMPRESSION: 1. Anoxic brain injury. 2. Progressive renal dysfunction. 3. Chronic rejection of bilateral lung transplants with a recent acute rejection plus or minus an in fection. 4. Status post tracheostomy. 5. Status post out of hospital arrest. Her prognosis for any functional recovery is close to zero. Family is not willing to withdraw suppor t at this point in time as relayed by the nurses.
[2018-02-15 17:23] VITALS: TEMP 97.5
[2018-02-15] MEDS ORDERED: Lorazepam 2 MG/ML VIAL SLOW IVP PRN ×2 (17:37)
[2018-02-15] MEDS: Famotidine/PF 20 mg/2ml Vial SLOW IVP SCH (23:03)
--- NOTE | 2018-02-16 19:28 | DIS ---
DATE OF : 02/15/2018 TIME OF : 2105 hours. DATE OF ADMISSION: 02/10/2018 DISCHARGE DIAGNOSES: 1. Status post cardiac arrest, most likely secondary to respiratory failure. 2. History of bilateral transplant of the lung. 3. Idiopathic pulmonary fibrosis. 4. Possible pneumonia or sepsis. HOSPITAL COURSE: The patient is a 62-year-old female, who initially presented to the hospital after a cardiac arrest. The patient has a history of idiopathic pulmonary fibrosis, underwent bilateral michael ng transplant; however, she was in rejection. She initially came into the hospital a few months back ; however, was transferred to [facility] where she had received her transplant. The patient at that time was intubated in our ER and was transferred to [facility]. In [facility], the patient underwent a tracheost julia and she was discharged home. Apparently, it was noted that the patient was awake, alert, and was trying to teach the aide how to change her trach collar. At this time, the patient became very unre sponsive and the aide did give the patient rounds of CPR; however, there was no oxygen that was deliv ered to the patient. The patient was brought into the hospital for further evaluation. The patient had an EEG, which just indicated generalized slowing. She also was seen by Pulmonary Critical Care. She was on no sedation, and continued to be unresponsive. She initially was also treated with broad -spectrum antibiotics; however, the patient continued to decline slowly. Her creatinine worsened. T he patient became very tachycardic and then became very hypotensive while she was also on antibiotics . Discussed greatly in details with the patient's family for patient's poor outcome given her very h igh mortality, especially also with the bilateral lung transplant and also the fact that she was in r ejection and had a very minimal function left. The patient's children were around her. They decided to extubate her, which I was not present for that. The patient was extubated. I was notified that the patient did not last very long on her own and around 09:05. Condolences were sent to the patient's family.
== END 2018-02-16 | disposition expired | DRG 207 ==
LOC: ERS 13:42 → CCU 18:04
PROVIDERS: ADMIT Family Medicine; ATTEND Family Medicine
PROC: 5A1955Z Respiratory Ventilation, Greater than 96 Consecutive Hours (ICD-10-PCS; principal; 2018-02-10)
PROC: 4A00X4Z Measurement of Central Nervous Electrical Activity, External Approach (ICD-10-PCS; 2018-02-10)
PROC: 0CJS8ZZ Inspection of Larynx, Via Natural or Artificial Opening Endoscopic (ICD-10-PCS; 2018-02-10)
PROC: 06HY33Z Insertion of Infusion Device into Lower Vein, Percutaneous Approach (ICD-10-PCS; 2018-02-10)
DX: J96.01 Acute respiratory failure with hypoxia (principal); A41.9 Sepsis, unspecified organism; K72.00 Acute and subacute hepatic failure without coma; G93.40 Encephalopathy, unspecified; J69.0 Pneumonitis due to inhalation of food and vomit; T86.810 Lung transplant rejection; G93.1 Anoxic brain damage, not elsewhere classified; N17.9 Acute kidney failure, unspecified; I47.1 Supraventricular tachycardia; Z51.5 Encounter for palliative care; I46.8 Cardiac arrest due to other underlying condition; J96.02 Acute respiratory failure with hypercapnia; Z93.0 Tracheostomy status; J84.112 Idiopathic pulmonary fibrosis; I10 Essential (primary) hypertension; Z79.899 Other long term (current) drug therapy; Z79.52 Long term (current) use of systemic steroids; Z93.1 Gastrostomy status; Y83.0 Surgical operation with transplant of whole organ as the cause of abnormal reaction of the patient, or of later complication, without mention of misadventure at the time of the procedure
CPT/HCPCS: 31500; 31505; 36415; 51702; 70450; 71045; 80048; 80053; 80202; 81003; 81015; 82247; 82274; 82553; 82805; 84450; 84460; 84484; 85025; 85610; 85730; 87040; 87086; 92950; 93005; 93010; 94002; 94003; 94640; 94760; 95816; 95819; 96365; A4216; J0692; J1650; J2060; J2270; J2543; J2920; J3370; J3490; J7050; J7070; J7507; J7517; J7620; J8499; S0028